=== PATIENT | female | born 1950 | race Caucasian/White ===

== ENCOUNTER → 2016-10-15 | Outpatient (REF) | payer MEDICARE ==
[2016-10-15 11:29] LABS: BASO # 0.1 K/mm3 (0.0-0.2); BASO % 0.8 % (0.0-1.0); EOS # 0.1 K/mm3 (0.0-0.50); EOS % 0.8 % (0.0-3.0); LARGE UNSTAINED CELL # 0.2 K/mm3 (0.0-0.4); LARGE UNSTAINED CELL % 1.9 % (0.0-4.0); LYMPH # 2.7 K/mm3 (1.5-4.5); LYMPH % 21.4 % (24.0-44.0); MEAN CORPUSCULAR HEMOGLOBIN 31.3 pg (27.0-33.0); MEAN CORPUSCULAR HGB CONC 33.4 g/dl (32.0-36.5); MEAN CORPUSCULAR VOLUME 93.7 fl (80.0-96.0); MONO # 0.6 K/mm3 (0.0-0.8); MONO % 5.5 % (0.0-5.0); NEUTROPHILS # 8.1 K/mm3 (1.8-7.7); NEUTROPHILS % 69.6 % (36.0-66.0); PLATELET COUNT, AUTOMATED 224 k/mm3 (150-450); RED CELL DISTRIBUTION WIDTH 12.1 % (11.5-14.5); WHITE BLOOD COUNT 11.6 K/mm3 (4.0-10.0)
[2016-10-15 12:04] LABS: ALBUMIN 3.5 GM/DL (3.2-5.2); ALBUMIN/GLOBULIN RATIO 0.97 (1.00-1.93); BILIRUBIN,TOTAL 0.4 MG/DL (0.2-1.0); CALCIUM LEVEL 8.4 MG/DL (8.8-10.2); GLOMERULAR FILTRATION RATE 59.1 (>45); MAGNESIUM LEVEL 1.3 MG/DL (1.8-2.4); PERCENT SATURATION 32.1 % (13.2-37.4); TOTAL PROTEIN 7.1 GM/DL (6.4-8.2)
== END ==
LOC: M SFHCPLAZ 09:51
PROVIDERS: ATTEND Family Medicine
DX: N18.2 Chronic kidney disease, stage 2 (mild) (principal); I12.9 Hypertensive chronic kidney disease with stage 1 through stage 4 chronic kidney disease, or unspecified chronic kidney disease; E11.8 Type 2 diabetes mellitus with unspecified complications; E78.2 Mixed hyperlipidemia

== ENCOUNTER → 2017-03-13 | Outpatient (REF) | payer MEDICARE ==
[2017-03-13 14:12] LABS: YEAST LIKE CELL URINE AUTO SMALL
[2017-03-13 14:17] LABS: BASO # 0.1 K/mm3 (0.0-0.2); BASO % 0.7 % (0.0-1.0); EOS # 0.2 K/mm3 (0.0-0.50); EOS % 1.5 % (0.0-3.0); LARGE UNSTAINED CELL # 0.2 K/mm3 (0.0-0.4); LARGE UNSTAINED CELL % 1.4 % (0.0-4.0); LYMPH # 3.1 K/mm3 (1.5-4.5); LYMPH % 25.8 % (24.0-44.0); MEAN CORPUSCULAR HEMOGLOBIN 32.7 pg (27.0-33.0); MEAN CORPUSCULAR HGB CONC 34.5 g/dl (32.0-36.5); MEAN CORPUSCULAR VOLUME 94.9 fl (80.0-96.0); MONO # 0.8 K/mm3 (0.0-0.8); MONO % 6.8 % (0.0-5.0); NEUTROPHILS # 7.2 K/mm3 (1.8-7.7); NEUTROPHILS % 63.8 % (36.0-66.0); PLATELET COUNT, AUTOMATED 239 k/mm3 (150-450); RED CELL DISTRIBUTION WIDTH 12.5 % (11.5-14.5); WHITE BLOOD COUNT 11.3 K/mm3 (4.0-10.0)
[2017-03-13 14:31] LABS: ALBUMIN 3.4 GM/DL (3.2-5.2); ALBUMIN/GLOBULIN RATIO 0.89 (1.00-1.93); ALKALINE PHOSPHATASE 89 U/L (45-117); ALT/SGPT 27 U/L (12-78); ANION GAP 12 MEQ/L (8-16); AST/SGOT 18 U/L (15-37); BILIRUBIN,TOTAL 0.3 MG/DL (0.2-1.0); BLOOD UREA NITROGEN 20 MG/DL (7-18); CALCIUM LEVEL 9.2 MG/DL (8.8-10.2); CARBON DIOXIDE LEVEL 28 MEQ/L (21-32); CHLORIDE LEVEL 106 MEQ/L (98-107); CREATININE FOR GFR 0.85 MG/DL (0.55-1.02); FREE T4 1.06 NG/DL (0.76-1.46); GLOMERULAR FILTRATION RATE > 60.0 (>45); GLUCOSE, FASTING 174 MG/DL (80-110); POTASSIUM SERUM 4.2 MEQ/L (3.5-5.1); SODIUM LEVEL 146 MEQ/L (136-145); TOTAL PROTEIN 7.2 GM/DL (6.4-8.2)
== END ==
LOC: M SFHCPLAZ 09:04
PROVIDERS: ATTEND Family Medicine
DX: N18.2 Chronic kidney disease, stage 2 (mild) (principal); Z79.899 Other long term (current) drug therapy

== ENCOUNTER → 2017-08-28 | Outpatient (REF) | payer MEDICARE ==
[2017-08-28 12:37] LABS: ALBUMIN 3.5 GM/DL (3.2-5.2); ALBUMIN/GLOBULIN RATIO 0.92 (1.00-1.93); ALKALINE PHOSPHATASE 96 U/L (45-117); ALT/SGPT 78 U/L (12-78); ANION GAP 7 MEQ/L (8-16); AST/SGOT 74 U/L (7-37); BILIRUBIN,TOTAL 0.6 MG/DL (0.2-1.0); BLOOD UREA NITROGEN 13 MG/DL (7-18); C REACTIVE PROTEIN QUANTITATIV 0.92 MG/DL (0.00-0.30); CALCIUM LEVEL 9.1 MG/DL (8.8-10.2); CARBON DIOXIDE LEVEL 32 MEQ/L (21-32); CHLORIDE LEVEL 104 MEQ/L (98-107); CHOLESTEROL LEVEL 130 MG/DL (<200); CHOLESTEROL RISK RATIO 3.023 (<5); CPK CREATINE PHOSPHOKINASE 27 U/L (26-192); CREATININE FOR GFR 1.03 MG/DL (0.55-1.30); GLOMERULAR FILTRATION RATE 57.1 (>45); GLUCOSE, FASTING 149 MG/DL (70-100); HDL CHOLESTEROL 43 MG/DL (>40); LDL CHOLESTEROL 40.6 MG/DL (<100); NON-HDL-C 87 MG/DL; POTASSIUM SERUM 4.1 MEQ/L (3.5-5.1); SODIUM LEVEL 143 MEQ/L (136-145); TOTAL PROTEIN 7.3 GM/DL (6.4-8.2); TRIGLYCERIDES LEVEL 232 MG/DL (<150)
[2017-08-28 13:15] LABS: ESTIMATED AVERAGE GLUCOSE 154 MG/DL (60-110)
[2017-08-28 15:13] LABS: TOTAL 25(OH) VITAMIN D 72.1 NG/ML (30.0-100.0)
[2017-08-28 15:38] LABS: PTH INTACT 59.7 PG/ML (18.5-88.0)
== END ==
LOC: M SFHCPLAZ 08:44
DX: E78.2 Mixed hyperlipidemia (principal); I10 Essential (primary) hypertension; E11.8 Type 2 diabetes mellitus with unspecified complications; E55.9 Vitamin D deficiency, unspecified
CPT/HCPCS: 82550

== ENCOUNTER → 2017-09-23 | Outpatient (REF) | payer MEDICARE | LOC: M SFHCPLAZ 14:37 | DX: C44.619 Basal cell carcinoma of skin of left upper limb, including shoulder (principal) | CPT/HCPCS: 88305 ==

== ENCOUNTER → 2017-12-24 | Outpatient (REF) | payer MEDICARE ==
[2017-12-24 11:57] LABS: BASO # 0.1 10^3/uL (0.0-0.2); BASO % 0.7 % (0.0-1.0); EOS # 0.1 10^3/uL (0.0-0.50); EOS % 1.3 % (0.0-3.0); HEMATOCRIT 44.6 % (36.0-47.0); IMMATURE GRANULOCYTE % 0.5 % (0-3.0); LYMPH % 29.1 % (24.0-44.0); MEAN CORPUSCULAR HEMOGLOBIN 31.6 pg (27.0-33.0); MEAN CORPUSCULAR HGB CONC 33.6 g/dl (32.0-36.5); MEAN CORPUSCULAR VOLUME 94.1 fl (80.0-96.0); MONO # 0.8 10^3/uL (0.0-0.8); MONO % 7.9 % (0.0-5.0); NEUTROPHILS # 6.2 10^3/uL (1.8-7.7); NEUTROPHILS % 60.5 % (36.0-66.0); PLATELET COUNT, AUTOMATED 242 10^3/uL (150-450); RED BLOOD COUNT 4.74 10^6/uL (4.00-5.40); RED CELL DISTRIBUTION WIDTH 11.9 % (11.5-14.5); RETIC HEMOGLOBIN EQUIVALENT 36.1 pg (24-36); RETICULOCYTE # 68.3 10^9/L (17-77); RETICULOCYTE % 1.4 % (0.5-1.5); WHITE BLOOD COUNT 10.2 10^3/uL (4.0-10.0)
[2017-12-24 12:17] LABS: VITAMIN B12 LEVEL 829 PG/ML (247-911)
[2017-12-24 12:25] LABS: ALBUMIN 3.4 GM/DL (3.2-5.2); ALBUMIN/GLOBULIN RATIO 0.94 (1.00-1.93); ALKALINE PHOSPHATASE 82 U/L (45-117); ALT/SGPT 30 U/L (12-78); ANION GAP 9 MEQ/L (8-16); AST/SGOT 24 U/L (7-37); BILIRUBIN,TOTAL 0.2 MG/DL (0.2-1.0); BLOOD UREA NITROGEN 18 MG/DL (7-18); CALCIUM LEVEL 8.8 MG/DL (8.8-10.2); CARBON DIOXIDE LEVEL 30 MEQ/L (21-32); CHLORIDE LEVEL 105 MEQ/L (98-107); CREATININE FOR GFR 0.95 MG/DL (0.55-1.30); FREE T4 1.09 NG/DL (0.76-1.46); GLOMERULAR FILTRATION RATE > 60.0 (>45); GLUCOSE, FASTING 103 MG/DL (70-100); POTASSIUM SERUM 4.3 MEQ/L (3.5-5.1); SODIUM LEVEL 144 MEQ/L (136-145)
[2017-12-24 13:36] LABS: ESTIMATED AVERAGE GLUCOSE 169 MG/DL (60-110); HEMOGLOBIN A1c 7.5 %
== END ==
LOC: M SFHCPLAZ 07:37
DX: N18.2 Chronic kidney disease, stage 2 (mild) (principal); E11.8 Type 2 diabetes mellitus with unspecified complications
CPT/HCPCS: 83735

== ENCOUNTER → 2018-03-19 | Outpatient (REF) | payer MEDICARE | LOC: M SFHCPLAZ 12:39 | DX: C44.629 Squamous cell carcinoma of skin of left upper limb, including shoulder (principal) | CPT/HCPCS: 88305 ==

== ENCOUNTER → 2018-04-13 | Outpatient (CLI) | payer MEDICARE | LOC: M ADAMS 12:09 | DX: R19.7 Diarrhea, unspecified (principal) | CPT/HCPCS: 74021 ==

== ENCOUNTER → 2018-04-22 | Outpatient (REF) | payer MEDICARE ==
[2018-04-22 11:39] LABS: BASO # 0.1 10^3/uL (0.0-0.2); BASO % 0.6 % (0.0-1.0); EOS # 0.2 10^3/uL (0.0-0.50); EOS % 1.4 % (0.0-3.0); HEMATOCRIT 45.5 % (36.0-47.0); HEMOGLOBIN 15.1 g/dl (12.0-15.5); IMMATURE GRANULOCYTE % 0.7 % (0-3.0); LYMPH # 2.8 10^3/uL (1.5-4.5); LYMPH % 25.8 % (24.0-44.0); MEAN CORPUSCULAR HEMOGLOBIN 31.4 pg (27.0-33.0); MEAN CORPUSCULAR HGB CONC 33.2 g/dl (32.0-36.5); MEAN CORPUSCULAR VOLUME 94.6 fl (80.0-96.0); MONO # 0.9 10^3/uL (0.0-0.8); MONO % 7.9 % (0.0-5.0); NEUTROPHILS # 6.8 10^3/uL (1.8-7.7); NEUTROPHILS % 63.6 % (36.0-66.0); PLATELET COUNT, AUTOMATED 239 10^3/uL (150-450); RED BLOOD COUNT 4.81 10^6/uL (4.00-5.40); RED CELL DISTRIBUTION WIDTH 11.9 % (11.5-14.5); WHITE BLOOD COUNT 10.7 10^3/uL (4.0-10.0)
[2018-04-22 12:03] LABS: ALBUMIN 3.4 GM/DL (3.2-5.2); ALBUMIN/GLOBULIN RATIO 0.92 (1.00-1.93); ALKALINE PHOSPHATASE 77 U/L (45-117); ALT/SGPT 26 U/L (12-78); ANION GAP 8 MEQ/L (8-16); AST/SGOT 21 U/L (7-37); BILIRUBIN,TOTAL 0.5 MG/DL (0.2-1.0); BLOOD UREA NITROGEN 19 MG/DL (7-18); CALCIUM LEVEL 8.8 MG/DL (8.8-10.2); CARBON DIOXIDE LEVEL 29 MEQ/L (21-32); CHLORIDE LEVEL 107 MEQ/L (98-107); CREATININE FOR GFR 1.13 MG/DL (0.55-1.30); GLOMERULAR FILTRATION RATE 51.1 (>45); GLUCOSE, FASTING 124 MG/DL (70-100); POTASSIUM SERUM 3.8 MEQ/L (3.5-5.1); PTH INTACT 60.1 PG/ML (18.5-88.0); SODIUM LEVEL 144 MEQ/L (136-145); TOTAL PROTEIN 7.1 GM/DL (6.4-8.2)
[2018-04-22 12:04] LABS: ESTIMATED AVERAGE GLUCOSE 131 MG/DL (60-110); HEMOGLOBIN A1c 6.2 %
[2018-04-23 11:18] LABS: GAMMA GLOBULINS 1.12 GM/DL (0.65-1.58)
[2018-04-23 11:33] LABS: ALBUMIN % 54.4 % (55.8-66.1); ALPHA-1-GLOBULIN % 4.3 % (2.9-4.9); ALPHA-2-GLOBULINS % 13.9 % (7.1-11.8); BETA-1-GLOBULINS % 6.1 % (4.7-7.2); BETA-2-GLOBULINS % 5.5 % (3.2-6.5)
[2018-04-23 11:34] LABS: ALBUMIN 3.86 GM/DL (3.29-5.55); ALPHA-1-GLOBULINS 0.31 GM/DL (0.17-0.41); ALPHA-2-GLOBULINS 0.99 GM/DL (0.42-0.99); BETA-1-GLOBULINS 0.43 GM/DL (0.28-0.60); BETA-2-GLOBULINS 0.39 GM/DL (0.19-0.55); GAMMA GLOBULIN % 15.8 % (11.1-18.8)
== END ==
LOC: M SFHCPLAZ 08:34
DX: N18.2 Chronic kidney disease, stage 2 (mild) (principal); E11.8 Type 2 diabetes mellitus with unspecified complications; E55.9 Vitamin D deficiency, unspecified; Z79.899 Other long term (current) drug therapy
CPT/HCPCS: 84165

== ENCOUNTER → 2018-04-24 | Outpatient (CLI) | payer MEDICARE ==
[~2018-04-24] MED LIST: ISOVUE-370 76% 100ML VIAL (Q9967) As Ordered
== END ==
LOC: M RAD 12:31
DX: R91.8 Other nonspecific abnormal finding of lung field (principal); E04.1 Nontoxic single thyroid nodule
CPT/HCPCS: Q9967

== ENCOUNTER → 2018-05-06 | Outpatient (CLI) | payer MEDICARE ==
[~2018-05-06] MED LIST changes: -ISOVUE-370 76% 100ML VIAL (Q9967) As Ordered; +LIDOCAINE 1% MDV 20ML VIAL As Ordered; +amLODIPine 5 MG TAB PO
== END ==
LOC: M RADPRO 08:03
DX: R91.8 Other nonspecific abnormal finding of lung field (principal); Z53.8 Procedure and treatment not carried out for other reasons

== ENCOUNTER → 2018-05-08 | Outpatient (CLI) | payer MEDICARE ==
[~2018-05-08] MED LIST changes: +ALPRAZolam 0.5 MG TAB PO
== END ==
LOC: M RADPRO 09:10
DX: C34.92 Malignant neoplasm of unspecified part of left bronchus or lung (principal); Z88.2 Allergy status to sulfonamides
CPT/HCPCS: 32405

== ENCOUNTER → 2018-05-14 | Outpatient (CLI) | payer MEDICARE | LOC: M RADPRO 12:07 | DX: E04.1 Nontoxic single thyroid nodule (principal) | CPT/HCPCS: 76536 ==

== ENCOUNTER → 2018-05-26 | Outpatient (CLI) | payer MEDICARE | LOC: M PLARAD 13:25 | DX: R91.1 Solitary pulmonary nodule (principal) | CPT/HCPCS: 78815 ==

== ENCOUNTER → 2018-05-28 | Outpatient (CLI) | payer MEDICARE ==
[~2018-05-28] MED LIST changes: -ALPRAZolam 0.5 MG TAB PO; -amLODIPine 5 MG TAB PO
== END ==
LOC: M RADPRO 11:55
DX: E04.1 Nontoxic single thyroid nodule (principal); Z79.82 Long term (current) use of aspirin; Z79.899 Other long term (current) drug therapy; Z88.2 Allergy status to sulfonamides
CPT/HCPCS: 10022

== ENCOUNTER → 2018-06-17 | Outpatient (CLI) | payer MEDICARE ==
[~2018-06-17] MED LIST changes: +AMMO12LO TOP; +ASPI1TAB20 PO; +ATOR1TAB21 PO; +BISO5TAB5 PO; +BUPR150T5 PO; +COMBAER6 INH; +DRIS50003 PO; +ENAL20TA PO; +INVO300T PO; +JANU100T PO; -LIDOCAINE 1% MDV 20ML VIAL As Ordered; +MAGN400T2 PO; +METF500T13 PO; +OMEP40CA2 PO
== END ==
LOC: M CARPUL 09:36
PROVIDERS: ATTEND Family Medicine
DX: C34.92 Malignant neoplasm of unspecified part of left bronchus or lung (principal)

== ENCOUNTER → 2018-08-03 | Outpatient (REF) | payer MEDICARE ==
[2018-08-03 13:44] LABS: BASO # 0.1 10^3/uL (0.0-0.2); BASO % 0.8 % (0.0-1.0); EOS # 0.2 10^3/uL (0.0-0.50); HEMATOCRIT 45.5 % (36.0-47.0); HEMOGLOBIN 15.3 g/dl (12.0-15.5); LYMPH # 3.1 10^3/uL (1.5-4.5); LYMPH % 29.1 % (24.0-44.0); MEAN CORPUSCULAR HEMOGLOBIN 31.2 pg (27.0-33.0); MEAN CORPUSCULAR HGB CONC 33.6 g/dl (32.0-36.5); MEAN CORPUSCULAR VOLUME 92.7 fl (80.0-96.0); MONO # 0.9 10^3/uL (0.0-0.8); MONO % 8.8 % (0.0-5.0); NEUTROPHILS # 6.2 10^3/uL (1.8-7.7); NEUTROPHILS % 58.4 % (36.0-66.0); PLATELET COUNT, AUTOMATED 266 10^3/uL (150-450); RED BLOOD COUNT 4.91 10^6/uL (4.00-5.40); WHITE BLOOD COUNT 10.6 10^3/uL (4.0-10.0)
[2018-08-03 13:55] LABS: HEMOGLOBIN A1c 7.5 %; INR 0.95; PROTHROMBIN TIME 12.8 SECONDS (12.1-14.4)
[2018-08-03 13:56] LABS: PARTIAL THROMBOPLASTIN TIME 28.7 SECONDS (25.4-37.6)
[2018-08-03 14:14] LABS: ALBUMIN 3.5 GM/DL (3.2-5.2); BILIRUBIN,TOTAL 0.2 MG/DL (0.2-1.0); CALCIUM LEVEL 9.2 MG/DL (8.8-10.2); CHOLESTEROL RISK RATIO 3.717 (<5); CREATININE FOR GFR 0.99 MG/DL (0.55-1.30); FREE T4 0.92 NG/DL (0.76-1.46); GLOMERULAR FILTRATION RATE 59.6 (>45); POTASSIUM SERUM 3.9 MEQ/L (3.5-5.1); PTH INTACT 48.3 PG/ML (18.5-88.0); THYROID STIMULATING HORMONE 1.09 uIU/ML (0.358-3.740); TOTAL 25(OH) VITAMIN D 60.6 NG/ML (30.0-100.0); TOTAL PROTEIN 7.1 GM/DL (6.4-8.2)
== END ==
LOC: M SFHCPLAZ 11:53
PROVIDERS: ATTEND Family Medicine
DX: I11.0 Hypertensive heart disease with heart failure (principal); E55.9 Vitamin D deficiency, unspecified; E11.8 Type 2 diabetes mellitus with unspecified complications; I50.30 Unspecified diastolic (congestive) heart failure
CPT/HCPCS: 36415; 80053; 80061; 82306; 83036; 83970; 84439; 84443; 85025; 85610; 85730; G0463

== ENCOUNTER → 2018-09-22 | Outpatient (CLI) | payer MEDICARE ==
[~2018-09-22] MED LIST changes: +ISOVUE-370 76% 125ML VIAL (Q9967 PER ML) As Ordered ONE
--- NOTE | 2018-09-22 11:28 | REP ---
CT CHEST WITH IV CONTRAST: HISTORY: Lung carcinoma. Comparison chest CT study April 24, 2018. CT CONTRAST DOSE: 75 mL of intravenous Isovue [address] FINDINGS: The previously noted spiculated nodule in the left upper lobe has enlarged. Currently measures 2.4 x 2.0 x 2.3 cm. Previously its greatest dimension was 2.2 cm. It demonstrates heterogeneous predominately peripheral enhancement suggesting some central necrosis. There are three normal-sized precarinal lymph nodes noted the mediastinum. The largest of these measures 9 mm in short axis dimension. There are normal sized pretracheal and subcarinal lymph nodes noted as well. No definite adenopathy is seen. A right thyroid nodule is again noted unchanged. No axillary or supraclavicular adenopathy is seen. There is a granuloma in the left upper lobe more posteriorly and inferiorly. No other significant pulmonary nodule is appreciated. There is a zone of linear discoid atelectasis in the left upper lobe. No adrenal lesion is seen. There are cysts in the left kidney as before. IMPRESSION: Interval enlargement of the malignant left upper lobe nodule. Scattered normal-sized mediastinal lymph nodes. Electronically Signed by Jacob Luna MD 09/22/2018 11:33 A
[2018-09-22 13:40] LABS: BASO # 0.1 10^3/uL (0.0-0.2); EOS # 0.8 10^3/uL (0.0-0.50); EOS % 7.2 % (0.0-3.0); HEMATOCRIT 47.4 % (36.0-47.0); HEMOGLOBIN 16.3 g/dl (12.0-15.5); LYMPH # 2.8 10^3/uL (1.5-4.5); LYMPH % 26.2 % (24.0-44.0); MEAN CORPUSCULAR HEMOGLOBIN 31.2 pg (27.0-33.0); MEAN CORPUSCULAR HGB CONC 34.4 g/dl (32.0-36.5); MEAN CORPUSCULAR VOLUME 90.6 fl (80.0-96.0); MONO # 0.9 10^3/uL (0.0-0.8); MONO % 8.4 % (0.0-5.0); NEUTROPHILS # 6.1 10^3/uL (1.8-7.7); NEUTROPHILS % 56.7 % (36.0-66.0); PLATELET COUNT, AUTOMATED 274 10^3/uL (150-450); RED BLOOD COUNT 5.23 10^6/uL (4.00-5.40); WHITE BLOOD COUNT 10.7 10^3/uL (4.0-10.0)
[2018-09-22 13:48] LABS: APPEARANCE, URINE CLEAR (CLEAR); BACTERIA, URINE AUTO 1+ (NEGATIVE); BILIRUBIN, URINE AUTO NEGATIVE (NEGATIVE); BLOOD, URINE BLOOD NEGATIVE (NEGATIVE); COLOR, URINE YELLOW (YELLOW); GLUCOSE, URINE (UA) AUTO 1+ mg/dL (NEGATIVE); KETONE, URINE AUTO NEGATIVE (NEGATIVE); LEUKOCYTE ESTERASE, URINE AUTO TRACE (NEGATIVE); NITRITE, URINE AUTO NEGATIVE (NEGATIVE); PROTEIN, URINE AUTO 1+ mg/dL (NEGATIVE); RBC, URINE AUTO 3 /HPF (0-3); SPECIFIC GRAVITY URINE AUTO 1.054 (1.002-1.035); SQUAMOUS EPITHELIAL CELL UR AU 3 /HPF (0-6); UROBILINOGEN, URINE AUTO 0.2 mg/dL (0.0-2.0); WBC, URINE AUTO 9 /HPF (0-3)
[2018-09-22 13:50] LABS: PARTIAL THROMBOPLASTIN TIME 28.9 SECONDS (25.4-37.6); PROTHROMBIN TIME 13.3 SECONDS (12.1-14.4)
[2018-09-22 13:51] LABS: ABG BASE EXCESS 0.5 (-2.0-2.0); ABG HCO3 25.3 MEQ/L (22.0-26.0); ABG O2 SATURATION 95.4 % (95.0-99.0); ABG PARTIAL PRESSURE CO2 41.1 mmHg (35.0-45.0); ABG PARTIAL PRESSURE O2 78.3 mmHg (75.0-100.0); ABG STANDARD HCO3 24.9 MEQ/L (22.0-26.0); ABG TOTAL CO2 26.6 MEQ/L (23.0-31.0); ABG pH (ARTERIAL) 7.407 UNITS (7.350-7.450)
[2018-09-22 14:10] LABS: CALCIUM LEVEL 9.7 MG/DL (8.8-10.2); CREATININE FOR GFR 1.04 MG/DL (0.55-1.30); GLOMERULAR FILTRATION RATE 56.1 (>45); POTASSIUM SERUM 4.1 MEQ/L (3.5-5.1)
--- NOTE | 2018-09-22 14:23 | REP ---
Clinical: Lung cancer. Technique: PA and lateral. Comparison: 05/08/2018. Findings: Left upper lobe mass measures approximately 2.3 cm. The bilateral lung perkins are otherwise clear. No consolidation. No effusion. No pneumothorax. Mediastinum and cardiac silhouette normal. Skeletal structures intact. Impression: 2.3 cm left upper lobe mass similar to 05/17 Electronically Signed by Bubba Taylor MD 09/22/2018 02:15 P
--- NOTE | 2018-09-23 09:07 | ECGEPIP ---
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
== END ==
LOC: M RAD 07:46 → M PAT 12:38
PROVIDERS: ATTEND Thoracic Surgery (Cardiothoracic Vascular Surgery)
DX: Z01.818 Encounter for other preprocedural examination (principal); C34.12 Malignant neoplasm of upper lobe, left bronchus or lung
CPT/HCPCS: 71046; 71260; 80048; 81001; 82375; 82803; 85025; 85610; 85730; 93005; Q9967

== ENCOUNTER 2018-09-23 07:30 | Inpatient (IN) | payer MEDICARE ==
[2018-09-22 14:06] VITALS: BP 200/88
[~2018-09-23] VITALS: Ht 160 cm; Wt 87.2 kg
[~2018-09-23 07:30] MED LIST changes: -ISOVUE-370 76% 125ML VIAL (Q9967 PER ML) As Ordered ONE
[2018-09-29] MEDS ORDERED: LR 1,000 ML IV ONE (06:00)
[2018-09-29] MEDS ORDERED: MUPIROCIN 2% OINT 22 GM TUBE TOP ONE (06:00)
[2018-10-05] MEDS ORDERED: LR 1,000 ML IV ONE (06:00)
[2018-10-05] MEDS ORDERED: MUPIROCIN 2% OINT 22 GM TUBE TOP ONE (06:00)
[2018-10-05] MEDS ORDERED: BISO10TA13 PO (06:17)
[2018-10-05] MEDS ORDERED: fentaNYL 100 MCG/2 ML INJECTION (J3010) As Ordered ONE (06:46)
[2018-10-05] MEDS ORDERED: MIDAZOLAM INJ 2 MG/2 ML VIAL (J2250) As Ordered ONE ×2 (06:46→07:13)
[2018-10-05] MEDS ORDERED: LIDOCAINE 2% INJ 100 MG/5 ML SDV (FOR ANES.) As Ordered ONE (07:09)
[2018-10-05] MEDS ORDERED: ROCURONIUM BROMIDE 50 MG/5 ML VIAL As Ordered ONE ×2 (07:09→10:04)
[2018-10-05] MEDS ORDERED: PROPOFOL 200 MG/20 ML VIAL As Ordered ONE (07:09)
[2018-10-05] MEDS ORDERED: BUPIVACAINE HCL 0.5% 10 ML VIAL As Ordered ONE (07:11)
[2018-10-05] MEDS ORDERED: BUPIVACAINE LIPOSOME/PF 1.3% 20ML VIAL (13.3MG/ML)(EXPAREL)(C9290 PER1MG) As Ordered ONE (07:11)
[2018-10-05] MEDS ORDERED: STERILE TALC POWDER 3GM VIAL As Ordered ONE (07:11)
[2018-10-05] MEDS ORDERED: ceFAZolin 1GM INJ (J0690 PER 500MG) As Ordered ONE (07:11)
[2018-10-05] MEDS ORDERED: fentaNYL 250 MCG/5 ML INJECTION (J3010) As Ordered ONE ×2 (07:12→10:12)
[2018-10-05] MEDS ORDERED: CETACAINE SPRAY 5GM As Ordered ONE (07:36)
[2018-10-05] MEDS ORDERED: PHENYLephrine HCL 500 MCG/5 ML (100MCG/ML) SYRINGE (J2370) As Ordered ONE ×2 (08:13→11:43)
[2018-10-05] MEDS ORDERED: TALCAIR POWDER BLOWER (CAN ONLY BE USED WITH 3GM TALC VIAL) XX ONE (08:13)
[2018-10-05] MEDS ORDERED: fentaNYL 100 MCG/2 ML INJECTION (J3010) IV ONE (08:45)
[2018-10-05] MEDS ORDERED: MIDAZOLAM INJ 2 MG/2 ML VIAL (J2250) IV PRN (08:45)
[2018-10-05] MEDS ORDERED: MIDAZOLAM INJ 2 MG/2 ML VIAL (J2250) IV ONE (08:45)
[2018-10-05] MEDS: ENALAPRIL MALEATE 10 MG TAB PO SCH ×3 (09:00→20:30)
[2018-10-05] MEDS ORDERED: KETOROLAC 60 MG/2 ML VIAL (J1885) As Ordered ONE (10:05)
[2018-10-05] MEDS ORDERED: METOCLOPRAMIDE INJ 10MG/2ML VIAL (J2765) As Ordered ONE (10:05)
[2018-10-05] MEDS ORDERED: ONDANSETRON 4MG/2ML VIAL (J2405) As Ordered ONE (10:05)
[2018-10-05] MEDS ORDERED: SUGAMMADEX SODIUM 500 MG/5 ML VIAL (BRIDION) As Ordered ONE (11:43)
[2018-10-05] MEDS ORDERED: BUPIVACAINE HCL 0.5% 30 ML VIAL As Ordered ONE (11:48)
[2018-10-05] MEDS ORDERED: ONDANSETRON 4MG/2ML VIAL (J2405) IV PRN ×3 (12:15→13:30)
[2018-10-05] MEDS ORDERED: ACETAMINOPHEN TAB 650MG DOSE (2X325MG) PO PRN (12:15)
[2018-10-05] MEDS ORDERED: NORCO, ANEXSIA 5/325MG TABLET (HYDROcodone/ACETAMINOPHEN) PO PRN (12:15)
[2018-10-05] MEDS ORDERED: BISACODYL 10 MG SUPP PR PRN (12:15)
[2018-10-05] MEDS ORDERED: PERCOCET 5MG/325MG TAB PO PRN ×2 (12:15)
[2018-10-05] MEDS ORDERED: NALOXONE INJ 0.4 MG/1 ML VIAL (J2310) IV PRN (12:30)
[2018-10-05] MEDS ORDERED: diphenhydrAMINE INJ 50MG/ML VIAL (J1200) IV PRN (12:30)
[2018-10-05] MEDS ORDERED: EPIDURAL/PCA KEYS XX PRN (12:30)
[2018-10-05] MEDS ORDERED: WALLBOXKEY XX PRN (12:30)
[2018-10-05] MEDS ORDERED: METOCLOPRAMIDE INJ 10MG/2ML VIAL (J2765) IV PRN (12:30)
[2018-10-05] MEDS ORDERED: FENTANYL 2MCG/ML BUPIVACAINE 0.0625% NACL 250ML IV BAG As Ordered ONE (12:32)
[2018-10-05] MEDS: KCL 20MEQ IN D5/NS 1000ML 1,000 ML IV SCH (13:00)
[2018-10-05] MEDS: FENTANYL/BUPIVACAINE/NACL BAG 250 ML EPIDURAL SCH (13:05)
[2018-10-05 13:06] LABS: ABG BASE EXCESS -4.2 (-2.0-2.0); ABG HCO3 24.3 MEQ/L (22.0-26.0); ABG O2 SATURATION 97.2 % (95.0-99.0); ABG PARTIAL PRESSURE CO2 58.6 mmHg (35.0-45.0); ABG PARTIAL PRESSURE O2 107.5 mmHg (75.0-100.0); ABG TOTAL CO2 26.1 MEQ/L (23.0-31.0)
[2018-10-05 13:16] LABS: BASO # 0.1 10^3/uL (0.0-0.2); BASO % 0.4 % (0.0-1.0); EOS # 0.1 10^3/uL (0.0-0.50); EOS % 0.6 % (0.0-3.0); HEMATOCRIT 42.1 % (36.0-47.0); HEMOGLOBIN 14.1 g/dl (12.0-15.5); LYMPH # 1.2 10^3/uL (1.5-4.5); LYMPH % 7.9 % (24.0-44.0); MEAN CORPUSCULAR HEMOGLOBIN 31.1 pg (27.0-33.0); MEAN CORPUSCULAR HGB CONC 33.5 g/dl (32.0-36.5); MEAN CORPUSCULAR VOLUME 92.7 fl (80.0-96.0); MONO # 1.1 10^3/uL (0.0-0.8); MONO % 7.1 % (0.0-5.0); NEUTROPHILS # 12.4 10^3/uL (1.8-7.7); NEUTROPHILS % 83.3 % (36.0-66.0); PLATELET COUNT, AUTOMATED 256 10^3/uL (150-450); RED BLOOD COUNT 4.54 10^6/uL (4.00-5.40); WHITE BLOOD COUNT 14.9 10^3/uL (4.0-10.0)
[2018-10-05 13:18] LABS: ABG pH (ARTERIAL) 7.235 UNITS (7.350-7.450)
[2018-10-05] MEDS ORDERED: MORPHINE 10 MG/ML 1ML VIAL (J2270) IV PRN (13:30)
[2018-10-05] MEDS ORDERED: fentaNYL 100 MCG/2 ML INJECTION (J3010) IV PRN (13:30)
[2018-10-05 13:42] LABS: CALCIUM LEVEL 8.8 MG/DL (8.8-10.2); CREATININE FOR GFR 1.71 MG/DL (0.55-1.30); GLOMERULAR FILTRATION RATE 31.6 (>45); POTASSIUM SERUM 4.1 MEQ/L (3.5-5.1)
--- NOTE | 2018-10-05 14:07 | RO ---
DATE OF PROCEDURE: 10/05/2018 PREPROCEDURE DIAGNOSIS: Squamous cell carcinoma of the left upper lobe. POSTPROCEDURE DIAGNOSIS: Squamous cell carcinoma of the left upper lobe. SURGEON: Dr. 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 ANESTHESIA: FINDINGS: 1. Tracheobronchial tree showed normal branching. There were copious amounts of thick secretions. There were no endobronchial lesions. 2. Lobectomy showed an almost complete fissure. She is morbidly obese and very small and all the tissues were compacted such that dissection was rather difficult but doable. 3. Mediastinal nodes looked anthracotic, as did the hilar nodes. DESCRIPTION OF PROCEDURE: Under satisfactory general anesthesia and single lumen tube endotracheal intubation, the bronchoscope was passed through the tracheobronchial tree. There was normal branching pattern in each segment and subsegment, which were thoroughly inspected. There were copious amounts of secretions and these were suction aspirated. The patient then underwent double lumen tube intubation and turned in the right lateral decubitus position with the left side up. Because of her morbid obesity, a rather generous incision was made posterolaterally. Ribs were counted and the chest was entered through the fifth intercostal space just above the sixth rib. The above findings were noted. Dissection was first started in the fissure where the pulmonary artery could be seen. It was dissected free. As I dissected both proximally and distally, there were increased amounts of adipose tissue over the vessel all the way up to the apex. This was carefully dissected. Eventually four branches were found and these were surrounded with Vesseloops and divided by use of a ski tip endothoracic stapler. There was one very small vessel, which I divided with the stapler, which bled through the staple line, into which pressure was applied for 4 minutes and stopped. The fissure was completed by use of an [place] stapler. The vein was then located and dissected. This was a rather difficult dissection as the vein was densely adherent to the underlying bronchus and the utmost care had to be taken in order to not enter the vein. Finally, it was dissected off the bronchus, surrounded with a Vesseloop and divided by use of a ski tip vascular stapler. This then left the bronchus. During the manipulation of the bronchus, the endotracheal tube became dislodged and it took approximately 20 to 25 minutes to reposition it by anesthesia. Finally after repositioning, the bronchus was divided by use of a TX 4.8 stapler. Bronchus was tested for leaks and was found to be intact up to 30 cm of water. During dissection of the vein, the inferior ligament had been taken down with use of electrocautery. The mediastinal nodes were then addressed by sizing the mediastinal pleura over the AP window. All the AP nodes were cleared out en bloc with a harmonic scalpel. The phrenic nerve was identified and preserved. After achieving adequate hemostasis, the bronchus was again tested to 30 cm of water. The chest was evacuated and two chest tubes were placed, #24 straight and #24 angled posteriorly. A five-level rib lock consisting of Marcaine and Exparel was then instilled. Tisseel was placed over all the staple lines and the bronchus. The lung was reinflated and the ribs were reapproximated with the use of #1 figure of eight pericostal sutures. The latissimus dorsi was reapproximated with use of a #0 Vicryl suture in a running fashion. The serratus anterior had been spared. The subcutaneous tissue, which was quite copious, was reapproximated by use of a running #3-0 Vicryl suture and the skin by use of #3-0 Monocryl subcuticular suture. Additional accessory incision in order to place the vascular stapler, was closed as above. The patient was then turned supine, reintubated with a single lumen tube, repeat bronchoscopy revealed intact anastomosis with some residual blood within the left mainstem bronchus. She had some secretions but not as many as I thought she was going to have. The patient tolerated the procedure well and left the operating room in satisfactory condition to the recovery room.
[2018-10-05 14:36] LABS: ABG BASE EXCESS -3.2 (-2.0-2.0); ABG HCO3 22.4 MEQ/L (22.0-26.0); ABG O2 SATURATION 95.2 % (95.0-99.0); ABG PARTIAL PRESSURE CO2 42.4 mmHg (35.0-45.0); ABG STANDARD HCO3 21.7 MEQ/L (22.0-26.0); ABG TOTAL CO2 23.7 MEQ/L (23.0-31.0); ABG pH (ARTERIAL) 7.341 UNITS (7.350-7.450)
--- NOTE | 2018-10-05 14:38 | REP ---
Portable chest, 12:47 p.m., single AP sitting view: Comparison is 09/22/2018. The patient is reportedly status post left upper lobectomy. There are two left thoracotomy tubes as an interval change. There is no pneumothorax or pleural fluid collection. The left lung is otherwise clear. The right lung is clear. Cardiac size is normal. There is subcutaneous emphysema along the right lateral chest wall. Epidural catheter is incidentally identified. Electronically Signed by Rafal Bentley MD 10/05/2018 02:28 P
[2018-10-05 15:10] VITALS: BP_SYST 120; BP_SYST 124; BP_SYST 133; BP_DIAS 117; BP_DIAS 53; BP_DIAS 78
[2018-10-05 16:00] VITALS: BP_SYST 132; BP_SYST 133; BP_DIAS 60
[2018-10-05] MEDS ORDERED: KETOROLAC 30 MG/ML VIAL (J1885) IV SCH (16:00)
[2018-10-05 17:00] VITALS: BP_SYST 122; BP_SYST 139; BP_DIAS 49; BP_DIAS 58
[2018-10-05] MEDS: MOM 30ML SUSPENSION UDC PO SCH (17:13)
[2018-10-05] MEDS: PANTOPRAZOLE 40MG TAB (PROTONIX) PO SCH (17:13)
[2018-10-05] MEDS: ceFAZolin SOD 1 GM in D5W MINI-BAG PLUS 50 ML IV SCH ×2 (17:13→22:56)
[2018-10-05 17:14] LABS: MAGNESIUM LEVEL 1.4 MG/DL (1.8-2.4)
[2018-10-05] MEDS: SITagliptin 50 MG TAB (JANUVIA) PO SCH (17:14)
[2018-10-05] MEDS: LEVALBUTEROL 1.25 MG/0.5 ML CONCENTRATE NEB NEB SCH ×2 (17:20→19:44)
[2018-10-05] MEDS ORDERED: MAG SULF 1GM/100ML (MAG RUN) 1 GM in APPROPRIATE DILUENT 1 EA IV ONE ×2 (17:30→21:00)
[2018-10-05 18:00] VITALS: BP_SYST 134; BP_SYST 156; BP_DIAS 56; BP_DIAS 63
[2018-10-05 20:00] VITALS: BP_SYST 124; BP_SYST 126; BP_DIAS 54; BP_DIAS 78
[2018-10-05] MEDS: ATORVASTATIN 20 MG TAB PO SCH (20:30)
[2018-10-05] MEDS: DOCUSATE SODIUM 100 MG CAP PO SCH (20:30)
[2018-10-05] MEDS: LACTIC ACID 12% LOTION 225 GM BTL TOP SCH (20:31)
[2018-10-05] MEDS: HEPARIN SOD (PORCINE) 5000 UNITS/ML VIAL SC SCH (20:32)
[2018-10-06] VITALS (10 sets, daily range): BP systolic 111–163; BP diastolic 50–82
[2018-10-06] MEDS: LEVALBUTEROL 1.25 MG/0.5 ML CONCENTRATE NEB NEB SCH ×4 (01:20→19:52)
[2018-10-06] MEDS: KCL 20MEQ IN D5/NS 1000ML 1,000 ML IV SCH (02:20)
[2018-10-06 04:46] LABS: BASO % 0.3 % (0.0-1.0); EOS % 0.1 % (0.0-3.0); HEMATOCRIT 40.1 % (36.0-47.0); HEMOGLOBIN 13.6 g/dl (12.0-15.5); LYMPH # 1.7 10^3/uL (1.5-4.5); LYMPH % 14.8 % (24.0-44.0); MEAN CORPUSCULAR HGB CONC 33.9 g/dl (32.0-36.5); MEAN CORPUSCULAR VOLUME 91.3 fl (80.0-96.0); MONO # 1.1 10^3/uL (0.0-0.8); MONO % 10.1 % (0.0-5.0); NEUTROPHILS # 8.3 10^3/uL (1.8-7.7); NEUTROPHILS % 74.3 % (36.0-66.0); PLATELET COUNT, AUTOMATED 225 10^3/uL (150-450); RED BLOOD COUNT 4.39 10^6/uL (4.00-5.40); WHITE BLOOD COUNT 11.2 10^3/uL (4.0-10.0)
[2018-10-06 05:02] LABS: CALCIUM LEVEL 7.9 MG/DL (8.8-10.2); CREATININE FOR GFR 1.31 MG/DL (0.55-1.30); MAGNESIUM LEVEL 2.2 MG/DL (1.8-2.4); POTASSIUM SERUM 3.9 MEQ/L (3.5-5.1)
[2018-10-06 05:36] LABS: ABG BASE EXCESS 1.1 (-2.0-2.0); ABG O2 SATURATION 95.1 % (95.0-99.0); ABG PARTIAL PRESSURE O2 76.8 mmHg (75.0-100.0); ABG STANDARD HCO3 25.4 MEQ/L (22.0-26.0); ABG TOTAL CO2 27.3 MEQ/L (23.0-31.0); ABG pH (ARTERIAL) 7.409 UNITS (7.350-7.450)
[2018-10-06] MEDS: ceFAZolin SOD 1 GM in D5W MINI-BAG PLUS 50 ML IV SCH ×3 (07:00→23:00)
--- NOTE | 2018-10-06 08:31 | REP ---
A PA and lateral chest, the patient semi upright: Comparison is 10/05/2018.. The two left thoracotomy tubes are unchanged. There is no pneumothorax or pleural fluid collection. The subcutaneous emphysema along the left lateral chest wall has decreased. There is a focal density associated with the right minor fissure, unchanged, possibly a small volume of pleural fluid in the fissure. There is discoid atelectasis superimposed over the right hilus, unchanged. The epidural catheter is unchanged. Impression: No significant interval change. Electronically Signed by Rafal Bentley MD 10/06/2018 08:22 A
[2018-10-06] MEDS: MOM 30ML SUSPENSION UDC PO SCH (09:42)
[2018-10-06] MEDS: DOCUSATE SODIUM 100 MG CAP PO SCH ×2 (09:43→20:08)
[2018-10-06] MEDS: LACTIC ACID 12% LOTION 225 GM BTL TOP SCH ×2 (09:43→20:09)
[2018-10-06] MEDS: SITagliptin 50 MG TAB (JANUVIA) PO SCH (09:43)
[2018-10-06] MEDS: PANTOPRAZOLE 40MG TAB (PROTONIX) PO SCH (09:43)
[2018-10-06] MEDS: ENALAPRIL MALEATE 10 MG TAB PO SCH ×2 (09:44→20:09)
[2018-10-06] MEDS: HEPARIN SOD (PORCINE) 5000 UNITS/ML VIAL SC SCH ×2 (09:45→20:09)
[2018-10-06] MEDS: FENTANYL/BUPIVACAINE/NACL BAG 250 ML EPIDURAL SCH (11:53)
--- NOTE | 2018-10-06 13:39 | IPN ---
DATE: 10/06/2018 This is now the first postoperative for Mrs. Fields. She is almost pain free, she is quite weak and fatigued. I suspect that her epidural, while only going at 10, is affecting her and I will decrease her epidural. She is breathing well and her blood gases have normalized. Her vital signs show a T-max of 99.6 with a heart rate that ranges between 95 and 84 and is sinus rhythm, respiratory rate of 20 to 22 without the use of accessory muscles, who is 90-94% saturated on 3 liters nasal cannula and whose blood pressure is ranging between 150-160/63-68. Her intake and output the past 24 hours has been recorded as 2130 in and 591 out for a positivity of 1539 mL. She has put 206 mL out the chest and 250 mL in the last 12 hours. I do not see an air leak, although the nursing staff did. Weight today is 84.6 kg compared to 85 kg yesterday. On physical examination, she has diffuse rales and rhonchi throughout both lungs. I do not hear wheezing. Percussion note is full to the diaphragm. Cardiac exam is without murmurs, clicks, gallops or rubs. I cannot feel his point of maximal impulse (PMI). S1 and S2 are normal. Abdomen is soft and nontender. Bowel sounds are positive. There is no hepatomegaly. No costovertebral angle (CVA) tenderness. Extremities show trace pretibial edema. No calf tenderness. No differential swelling of the upper extremities. Skin is warm, dry and perfused without cyanosis or mottling including that of the nail beds and the knees. Neck is supple. There is no jugular venous distention. No subcutaneous emphysema. Trachea is midline. Mouth shows her mucous membranes to be pink and moist. Lips and commissures are without lesions. There is no thrush. Eyes show her pupils to be equal, reactive. Extraocular motors are intact. Sclera nonicteric. Neuro shows II through XII intact, along with gross motor and gross sensation intact. Gait is not tested. Psychiatric shows her to be awake and alert, oriented times three with appropriate mood, affect and conversational. Her white count today is 11.2 with a hemoglobin and hematocrit of 13.6 and 40.1 respectively with a platelet count of 255 and stable. Differential shows 74% neutrophils, 14% lymphocytes, 10% monocytes. There are no immature forms, no toxic granulations. Her chemistries are normal, however with a BUN and creatinine of 21 and 1.31, which is improved from her immediate postoperative values of 20 and 1.71. Glucose is 221 with a calcium of 7.9 and magnesium of 2.2. She was hypomagnesemic yesterday and she got two runs of magnesium. Her blood gases show a pH of 7.409, pCO2 of 42 and a PaO2 of 76 on 3 liters nasal cannula with a base excess of 1.1. She has completely resolved her mild acidemia. Her chest x-ray shows her lung fully expanded to the chest wall. There is obligate volume loss from the lobectomy on the left side. Costophrenic angles are sharp and I see just minimal subcutaneous emphysema in the right lateral upper chest wall. I see no other infiltrates. She has some fluid int he right minor fissure on the lateral chest x-ray and chest tubes are in good place. Pathology has been reported back as moderately differentiated squamous cell carcinoma, 2.2 cm in its greatest dimensions. Her mediastinal nodes are negative and 3 peribronchial nodes are negative for carcinoma. This gives her a stating of [id number], or stage IA2. IMPRESSION: 1. Moderately differentiated squamous cell carcinoma left upper lobe. 2. Renal insufficiency improving. 3. Obesity. 4. Diabetes. 5. Hypertension. 6. Chronic obstructive pulmonary disease (COPD). 7. Hyperlipidemia. PLAN: I will keep her chest tubes on suction. I will keep her in the ICU today. I will not yet diurese her. We will decrease her epidural until she starts to have pain and hopefully address the fatigue. She was not able to stand today to go to x-ray and had to be taken in her bed.
[2018-10-06] MEDS: ATORVASTATIN 20 MG TAB PO SCH (20:09)
[2018-10-07] VITALS (7 sets, daily range): BP systolic 131–161; BP diastolic 61–75
[2018-10-07] MEDS: LEVALBUTEROL 1.25 MG/0.5 ML CONCENTRATE NEB NEB SCH ×4 (02:23→20:00)
[2018-10-07 06:18] LABS: BASO # 0.1 10^3/uL (0.0-0.2); BASO % 0.5 % (0.0-1.0); EOS % 0.4 % (0.0-3.0); HEMATOCRIT 37.9 % (36.0-47.0); HEMOGLOBIN 12.7 g/dl (12.0-15.5); LYMPH # 1.7 10^3/uL (1.5-4.5); LYMPH % 15.3 % (24.0-44.0); MEAN CORPUSCULAR HEMOGLOBIN 31.1 pg (27.0-33.0); MEAN CORPUSCULAR HGB CONC 33.5 g/dl (32.0-36.5); MEAN CORPUSCULAR VOLUME 92.9 fl (80.0-96.0); MONO # 1.1 10^3/uL (0.0-0.8); MONO % 10.3 % (0.0-5.0); NEUTROPHILS % 72.7 % (36.0-66.0); PLATELET COUNT, AUTOMATED 198 10^3/uL (150-450); RED BLOOD COUNT 4.08 10^6/uL (4.00-5.40)
[2018-10-07 06:53] LABS: CREATININE FOR GFR 1.01 MG/DL (0.55-1.30); POTASSIUM SERUM 4.6 MEQ/L (3.5-5.1)
[2018-10-07] MEDS: ceFAZolin SOD 1 GM in D5W MINI-BAG PLUS 50 ML IV SCH (07:53)
[2018-10-07] MEDS: SODIUM CHLORIDE HYPERTONIC 3% 15ML NEB SOL INH SCH ×4 (08:00→20:00)
[2018-10-07] MEDS: ACETYLCYSTEINE 20% 4 ML VIAL (200MG/ML) INH SCH ×3 (08:00→20:00)
--- NOTE | 2018-10-07 08:40 | REP ---
PA and lateral chest: Comparison is 10/06/2018. The two left thoracotomy tubes are unchanged. There is no left pneumothorax. There is no visible subcutaneous emphysema along the left lateral chest wall. The linear density associated with the right minor fissure is again identified, nonspecific, fluid within the fissure, atelectasis, or imaging artifact from the fissure. The right lung is otherwise clear. Cardiac size is normal. The epidural catheter is unchanged. Electronically Signed by Rafal Bentley MD 10/07/2018 08:31 A
[2018-10-07] MEDS: HEPARIN SOD (PORCINE) 5000 UNITS/ML VIAL SC SCH ×2 (09:21→21:00)
[2018-10-07] MEDS: ENALAPRIL MALEATE 10 MG TAB PO SCH ×2 (09:21→21:09)
[2018-10-07] MEDS: MOM 30ML SUSPENSION UDC PO SCH (09:21)
[2018-10-07] MEDS: PANTOPRAZOLE 40MG TAB (PROTONIX) PO SCH (09:21)
[2018-10-07] MEDS: SITagliptin 50 MG TAB (JANUVIA) PO SCH (09:21)
[2018-10-07] MEDS: DOCUSATE SODIUM 100 MG CAP PO SCH ×2 (09:21→21:08)
[2018-10-07] MEDS: LACTIC ACID 12% LOTION 225 GM BTL TOP SCH ×2 (09:22→21:00)
--- NOTE | 2018-10-07 14:10 | IPN ---
DATE: 10/07/2018 This is now the second postoperative day for Mrs. Fields. She has a very thick cough with lots of audible rhonchi without being able to get her sputum up. She sounds quite rattly. She is not complaining of all that much pain however. She still feels weak. Her epidural is at 6, down from 8 yesterday. Her vital signs show a T-max of 99.6 with a heart rate that ranges between 97 and 92 in a sinus rhythm, a respiratory rate of 18 to 20 without the use of accessory muscles who is 91-93% saturated on 2 liters nasal cannula. Blood pressure is ranging between 141/63 to 179/72. On physical examination, she has very coarse rhonchi throughout both lungs. It was noted at the time of surgery she had very thick secretions. I do not hear wheezing. Percussion note is full to the diaphragm. Cardiac exam is without murmurs, clicks, gallops or rubs. I cannot feel her point of maximal impulse (PMI). S1 and S2 are normal. Abdomen is soft and nontender. Bowel sounds are positive. There is no hepatomegaly. No costovertebral angle (CVA) tenderness. Extremities show no pretibial edema. No calf tenderness. No differential swelling of the upper extremities. Skin is warm, dry and perfused without cyanosis or mottling including that of the nail beds and the knees. Neck is supple. There is no jugular venous distention. No subcutaneous emphysema. Trachea is midline. Mouth shows her mucous membranes to be pink and moist. Lips and commissures are without lesions. There is no thrush. Eyes show her pupils to be equal, reactive. Extraocular motors are intact. Sclera nonicteric. Neuro shows II through XII intact, along with gross motor and gross sensation intact. Gait is described below. Psychiatric shows her to be awake and alert, oriented times three with appropriate mood, affect and conversational. I walked her today behind a wheelchair. She limps on her left leg because of her gout which is unchanged from her preoperative status. Nonetheless, she does seem very weak and has difficult standing up straight. I am therefore going to wean the epidural again. Her white count today is 11.0 down from 11.2 and 14.9 the last two days with hemoglobin and hematocrit of 12.7 and 37.9. Platelet count is 198 with differential of 72% neutrophils, 15% lymphocytes, 10% monocytes. There are no immature forms and no toxic granulations. Her electrolytes are normal with a normalized BUN and creatinine of 20 and 1.01, down from 1.71 immediately postoperatively. Glucose is 246 with a calcium of 8.0. There are no blood gases on her today. Her intake and output the past 24 hours was recorded as 2000 in and 1670 out for a positive of 330 mL. She has put out 345 mL from the chest tube and I see no air leak. Her chest x-ray today shows her lung fully expanded to the chest wall. There is fluid in the minor fissure. Chest tubes are in good place. There looks to be some faint opacification in the left lower hemithorax at the costophrenic angle, but I think it is because of her increased breast tissue and morbid obesity. There is no subcutaneous emphysema and the mediastinum is in the midline. Pathology has been returned as moderately differentiated squamous cell carcinoma 2.2 cm in its largest dimensions with a TNM classification of [id number], making her a stage I A2 final stage. She will not need adjuvant chemotherapy. IMPRESSION: 1. Postoperative day #2 status post left upper lobectomy. 2. Moderately differentiated squamous cell carcinoma left upper lobe Stage I A2. 3. Renal insufficiency, improved and resolved. 4. Obesity. 5. Diabetes. 6. Hypertension. 7. Chronic obstructive pulmonary disease (COPD). 8. Hyperlipidemia. 9. Generalized weakness. PLAN AND DISCUSSION: As noted above, I am going to again wean the epidural. We did walk to the doors of the intensive care unit. While she was able to traverse that distance it was with great difficulty and she continually wanted to bend her back and not stand up straight as if she were weakened. I have started her on nebulized hypertonic saline to increase her cough along with Mucomyst. I will start her on Acapella in addition to the other respiratory expansion modalities. I am gratified that she does not have an air leak. I will not diurese her today.
[2018-10-07] MEDS: KETOROLAC 30 MG/ML VIAL (J1885) IV SCH ×2 (14:19→21:09)
[2018-10-07] MEDS: FENTANYL/BUPIVACAINE/NACL BAG 250 ML EPIDURAL SCH (14:22)
[2018-10-07] MEDS: ATORVASTATIN 20 MG TAB PO SCH (21:08)
[2018-10-08] VITALS: BP 136/72
[2018-10-08] MEDS: LEVALBUTEROL 1.25 MG/0.5 ML CONCENTRATE NEB NEB SCH ×4 (02:00→20:28)
[2018-10-08] MEDS: SODIUM CHLORIDE HYPERTONIC 3% 15ML NEB SOL INH SCH ×6 (03:51→20:28)
[2018-10-08 04:00] VITALS: BP 165/74
[2018-10-08 05:01] LABS: BASO # 0.1 10^3/uL (0.0-0.2); BASO % 0.6 % (0.0-1.0); EOS # 0.3 10^3/uL (0.0-0.50); EOS % 3.1 % (0.0-3.0); HEMATOCRIT 35.3 % (36.0-47.0); HEMOGLOBIN 11.8 g/dl (12.0-15.5); LYMPH # 2.1 10^3/uL (1.5-4.5); MEAN CORPUSCULAR HEMOGLOBIN 30.9 pg (27.0-33.0); MEAN CORPUSCULAR HGB CONC 33.4 g/dl (32.0-36.5); MEAN CORPUSCULAR VOLUME 92.4 fl (80.0-96.0); MONO # 1.2 10^3/uL (0.0-0.8); NEUTROPHILS # 7.1 10^3/uL (1.8-7.7); NEUTROPHILS % 65.5 % (36.0-66.0); PLATELET COUNT, AUTOMATED 192 10^3/uL (150-450); RED BLOOD COUNT 3.82 10^6/uL (4.00-5.40); WHITE BLOOD COUNT 10.9 10^3/uL (4.0-10.0)
[2018-10-08 05:21] LABS: CALCIUM LEVEL 8.5 MG/DL (8.8-10.2); CREATININE FOR GFR 1.06 MG/DL (0.55-1.30); GLOMERULAR FILTRATION RATE 54.9 (>45); POTASSIUM SERUM 4.6 MEQ/L (3.5-5.1)
[2018-10-08] MEDS: KETOROLAC 30 MG/ML VIAL (J1885) IV SCH ×3 (06:00→22:00)
[2018-10-08 08:00] VITALS: BP 127/59
--- NOTE | 2018-10-08 08:03 | REP ---
PA and lateral chest: Comparison is 10/07/2018. The two left thoracotomy tubes are unchanged. There is no left pneumothorax. The previously identified transverse linear density along the right minor fissure has resolved. This may have represented pleural fluid in the minor fissure or right upper lobe atelectasis. Slight effacement right costophrenic angle, as an interval change, suggesting a new small right pleural effusion. Cardiac size is normal. The jannet, mediastinum, skeletal structures are unchanged. Impression: The horizontal linear density associated with the right minor fissure has resolved, likely atelectasis or pleural fluid has resolved. Slight effacement of the right costophrenic angle as an interval change suggesting a new small right pleural effusion. Otherwise, no interval change. Electronically Signed by Rafal Bentley MD 10/08/2018 07:54 A
[2018-10-08] MEDS: ACETYLCYSTEINE 20% 4 ML VIAL (200MG/ML) INH SCH ×2 (08:05→20:28)
--- NOTE | 2018-10-08 08:19 | IPN ---
DATE: 10/08/2018 This is now the third postoperative day for Mrs. Fields. She is doing much better today than she was yesterday. She is not as congested and not as crackly today. I put her both hypotonic saline and Mucomyst to clear her secretions and to thin them out. Her vital signs show a T-max of 98.5 with a heart rate that ranges between 81 and 72 and is sinus rhythm, with a respiratory rate that is constant at 18, who is 94% saturated on 2 liters nasal cannula, and whose blood pressure is ranging between 131/61 to 161/74. Her intake and output over the past 24 hours has been recorded as 1221 in and 935 out for a positivity of 286 mL. She has put 125 mL out the chest tube and there is no air leak. On physical examination, her lungs show diffuse rhonchi and rales, but much better than they were yesterday. Percussion note is full to the diaphragm. Cardiac exam is without murmurs, clicks, gallops or rubs. I cannot feel her point of maximal impulse (PMI) through her morbid obesity. S1 and S2 are normal. Abdomen is soft and nontender. Bowel sounds are positive. I do not appreciate hepatomegaly and there is no costovertebral angle (CVA) tenderness. Extremities show trace pretibial edema. No calf tenderness. No differential swelling of the upper extremities. Skin is warm, dry and perfused without cyanosis or mottling including that of the nail beds and the knees. Neck is supple. There is no jugular venous distention. No subcutaneous emphysema. Trachea is midline. Mouth shows her mucous membranes to be pink and moist. Lips and commissures are without lesions. There is no thrush. Eyes show her pupils to be equal and reactive. Extraocular motors are intact. Sclera nonicteric. Neuro shows II through XII intact, along with gross motor and gross sensation intact. Gait is not tested. Psychiatric shows her to be awake and alert, oriented times three with appropriate mood, affect and conversational. Her chest x-ray today show obligate volume loss of the left lung from the lobectomy. The lung is otherwise fully expanded to the chest wall. The costophrenic angle looks slightly blunted on the left. The lateral chest x-ray shows no infiltrates and the costophrenic angles are sharp. There is no subcutaneous emphysema. IMPRESSION: 1. Postoperative day #3 status post left upper lobectomy. 2. Moderately differentiated squamous cell carcinoma left upper lobe Stage IA2. 3. Renal insufficiency, resolved. 4. Obesity. 5. Diabetes. 6. Hypertension. 7. Chronic obstructive pulmonary disease (COPD). 8. Hyperlipidemia. 9. Generalized weakness, much improved. PLAN AND DISCUSSION: I will take her chest tubes off suction today. As she is not putting much out the chest tube I will refrain from diuresing her. We need to now aggressively ambulate her. She is looking a lot stronger now that she is only on an epidural rate of 4. Her pain is being well controlled, gratifyingly.
[2018-10-08] MEDS: MOM 30ML SUSPENSION UDC PO SCH (09:27)
[2018-10-08] MEDS: ENALAPRIL MALEATE 10 MG TAB PO SCH ×2 (09:28→20:39)
[2018-10-08] MEDS: SITagliptin 50 MG TAB (JANUVIA) PO SCH (09:28)
[2018-10-08] MEDS: PANTOPRAZOLE 40MG TAB (PROTONIX) PO SCH (09:29)
[2018-10-08] MEDS: HEPARIN SOD (PORCINE) 5000 UNITS/ML VIAL SC SCH ×2 (09:29→20:41)
[2018-10-08] MEDS: DOCUSATE SODIUM 100 MG CAP PO SCH ×2 (09:29→20:39)
[2018-10-08] MEDS: LACTIC ACID 12% LOTION 225 GM BTL TOP SCH ×2 (09:31→20:40)
[2018-10-08] MEDS: FENTANYL/BUPIVACAINE/NACL BAG 250 ML EPIDURAL SCH (11:04)
[2018-10-08 12:03] VITALS: BP 182/77
[2018-10-08 13:12] VITALS: BP 182/83
[2018-10-08] MEDS: BISOPROLOL FUMARATE 10 MG TAB PO SCH ×2 (14:43→20:39)
[2018-10-08 20:00] VITALS: BP 122/90
[2018-10-08] MEDS: ATORVASTATIN 20 MG TAB PO SCH (20:39)
[2018-10-09] VITALS (22 sets, daily range): BP systolic 87–163; BP diastolic 44–95
[2018-10-09] MEDS: SODIUM CHLORIDE HYPERTONIC 3% 15ML NEB SOL INH SCH ×6 (00:47→19:46)
[2018-10-09] MEDS: LEVALBUTEROL 1.25 MG/0.5 ML CONCENTRATE NEB NEB SCH ×5 (00:48→13:28)
[2018-10-09 04:29] LABS: BASO # 0.1 10^3/uL (0.0-0.2); BASO % 0.5 % (0.0-1.0); EOS # 0.4 10^3/uL (0.0-0.50); EOS % 3.6 % (0.0-3.0); HEMATOCRIT 37.8 % (36.0-47.0); HEMOGLOBIN 12.7 g/dl (12.0-15.5); LYMPH # 2.5 10^3/uL (1.5-4.5); LYMPH % 21.3 % (24.0-44.0); MEAN CORPUSCULAR HEMOGLOBIN 31.1 pg (27.0-33.0); MEAN CORPUSCULAR HGB CONC 33.6 g/dl (32.0-36.5); MEAN CORPUSCULAR VOLUME 92.4 fl (80.0-96.0); MONO # 1.2 10^3/uL (0.0-0.8); MONO % 10.6 % (0.0-5.0); NEUTROPHILS # 7.3 10^3/uL (1.8-7.7); NEUTROPHILS % 63.2 % (36.0-66.0); PLATELET COUNT, AUTOMATED 251 10^3/uL (150-450); RED BLOOD COUNT 4.09 10^6/uL (4.00-5.40); WHITE BLOOD COUNT 11.6 10^3/uL (4.0-10.0)
[2018-10-09 04:47] LABS: BLOOD UREA NITROGEN 29 MG/DL (7-18); CALCIUM LEVEL 8.9 MG/DL (8.8-10.2); CARBON DIOXIDE LEVEL 29 MEQ/L (21-32); CHLORIDE LEVEL 103 MEQ/L (98-107); CREATININE FOR GFR 0.92 MG/DL (0.55-1.30); GLOMERULAR FILTRATION RATE > 60.0 (>45); GLUCOSE, FASTING 198 MG/DL (70-100); SODIUM LEVEL 137 MEQ/L (136-145)
[2018-10-09] MEDS: KETOROLAC 30 MG/ML VIAL (J1885) IV SCH ×3 (06:08→21:03)
[2018-10-09] MEDS: ACETYLCYSTEINE 20% 4 ML VIAL (200MG/ML) INH SCH ×2 (07:34→19:47)
--- NOTE | 2018-10-09 08:11 | REP ---
PA and lateral chest: Comparison is 10/08/2018. The patient is rotated. The heart and mediastinum obscure almost the entire left hemithorax. The two left thoracotomy tubes are unchanged. The right lung is clear. The epidural catheter is unchanged. Impression: No significant interval change except that the the patient is rotated. Electronically Signed by Rafal Bentley MD 10/09/2018 08:03 A
[2018-10-09 08:18] LABS: MAGNESIUM LEVEL 2.1 MG/DL (1.8-2.4)
--- NOTE | 2018-10-09 08:50 | REP ---
Portable chest, a 19 a.m., single AP semi upright view: Comparison is 10/08/2018 and PA and lateral chest earlier today. The patient is not rotated. The two left thoracotomy tubes are unchanged. The visualized left lung is unremarkable. Right lung is clear. There is volume loss in the left hemithorax as a consequence of left upper lobectomy. The epidural catheter is unchanged. Electronically Signed by Rafal Bentley MD 10/09/2018 08:41 A
--- NOTE | 2018-10-09 08:51 | IPN ---
DATE OF SERVICE: 10/09/2018 This is now the fourth postoperative day for Mrs. Fields. Her pain is being well controlled and she says that she is breathing well. However on physical examination, she has decreased breath sounds on the left side with transmitted bronchophony. Physical findings are confirmed on chest x-ray where she has now mucous plugged her left lower lobe. Her vital signs show a T-max of 99.2 with a heart rate that ranges between 86-75 and what looks like to be a sinus rhythm but on the monitor has peaked Ts. Her respiratory rate is 20-22 without the use of accessory muscles and she is 92% saturated on 2 liters nasal cannula. Blood pressure is ranging between 122-90 to 162/70. Her intake and output over the past 24 hours has been recorded at 600 in and 1500 out for a negativity of 900 mL. She has put out 180 mL from the chest tube and there is no air leak. Weight today is 87.6 kg compared to 88.6 kg two days ago. On physical examination, her left lung shows bronchophony and egophony. Percussion note is dull in the midlung field down to the base. Right lung shows scattered rhonchi. Percussion note is full to the diaphragm on the right side. Cardiac exam shows bradycardia without murmurs, clicks, gallops or rubs. I cannot feel her PMI through her obesity. S1 and S2 are normal. Abdomen is soft, nontender, bowel sounds are positive. There is no hepatomegaly that I can feel through her obesity. There is no CVA tenderness. Extremities show no pretibial edema. No calf tenderness. No differential swelling of the upper extremities. Skin is warm, dry and perfused without cyanosis or mottling including that of the nail beds and knees. Neck is supple. There is no jugular venous distention. No subcutaneous emphysema. Trachea is midline. Mouth shows her mucous membranes to be pink and moist. Lips and commissures are without lesions. No thrush. Eyes show her pupils to be equal and reactive. Extraocular motor intact. Sclera anicteric. Neuro shows II through XII intact with gross motor and gross sensation intact. Gait is not tested. Psychiatric shows her to be awake and alert, oriented times three with appropriate mood and affect and conversational. Her electrolytes today show potassium of 5.0 with a BUN and creatinine of 29 and 0.92 respectively. Glucose is 198 with a calcium of 8.9. White count is 11.6 up from 10.9 yesterday. Hemoglobin and hematocrit are 12.7 and 37.8 increased from 11.8 and 35.3 yesterday. Platelet count is 251 and stable and differential shows 63% neutrophils, 21% lymphocytes, 10% monocytes. There are no immature forms. No toxic granulations. Her magnesium is pending. Magnesium two days ago was 2.2 after two runs of magnesium sulfate. Her chest x-ray now shows a collapsed left lower lobe with a sharp cut off at the main stem bronchus. There is mediastinal shift to the left with volume loss. I cannot see the diaphragm. Her chest tubes are in good place and there is no subcutaneous emphysema. IMPRESSION: 1. Postoperative day #4 status post left upper lobectomy. 2. 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 3. Renal insufficiency resolved. 4. Obesity. 5. Diabetes. 6. Hypertension. 7. Chronic obstructive pulmonary disease (COPD). 8. Hyperlipidemia. 9. Generalized weakness improved. 10. Mucous plugging of remaining left lower lobe. 11. Bradycardic PVCs. PLAN AND DISCUSSION: Two days ago, I instituted both hypertonic saline and Mucomyst to loosen up her secretions. Findings at operation showed very thick secretions which were suction and aspirated both preprocedure and postprocedure. I had concerns the first postoperative day with her secretions and hence starting the hypertonic saline and Mucomyst. I also put her Acapella. Today she has now mucous plugged nearly her remaining left lower lobe. I will start therapy vest every 2 hours and I have asked Dr. Carr to evaluate her for possible bronchoscopy and removal of mucous plugging. We are encouraging her to cough. Pain does not seem to be a factor in her coughing and she is able to do so but not able to bring up her secretions. She is on Vasotec and Zebeta at home for hypertension. She has bradycardia with what look like peaked Ts on the monitor. She also had multiple PVCs. I have discontinued her Zebeta for the time being. I have asked Dr. Becerril to see her as he saw her in preoperative evaluation for her bradycardia and PVCs. It does not look as if she has any acute changes and I will, however, obtain a stat EKG.
[2018-10-09] MEDS: PANTOPRAZOLE 40MG TAB (PROTONIX) PO SCH (08:53)
[2018-10-09] MEDS: DOCUSATE SODIUM 100 MG CAP PO SCH ×2 (08:53→21:03)
[2018-10-09] MEDS: MOM 30ML SUSPENSION UDC PO SCH (08:53)
[2018-10-09] MEDS: SITagliptin 50 MG TAB (JANUVIA) PO SCH (08:54)
[2018-10-09] MEDS: HEPARIN SOD (PORCINE) 5000 UNITS/ML VIAL SC SCH ×2 (08:54→21:03)
[2018-10-09] MEDS: LACTIC ACID 12% LOTION 225 GM BTL TOP SCH ×2 (08:55→21:05)
[2018-10-09] MEDS: ENALAPRIL MALEATE 10 MG TAB PO SCH ×2 (08:55→21:04)
[2018-10-09] MEDS: **hydrALAZINE** 10 MG TAB PO SCH ×3 (10:55→21:00)
[2018-10-09] MEDS: BISOPROLOL FUMARATE 5 MG TAB PO SCH ×2 (10:56→21:04)
--- NOTE | 2018-10-09 11:19 | REP ---
Portable chest x-ray: Single view. 10:52 a.m. film. History: Follow-up. Postop left upper lobectomy. Comparison study is from 08:19 a.m. on this same date. Findings: There is a small quantity of pneumothorax at the apex and at the base of the left chest. The left lower lobe remains atelectatic and opaque. There is an abrupt amputation of the left mainstem bronchial silhouette suggesting the possibility of mucous plugging. Two left chest tubes remain in place near the apex. An epidural catheter is again seen. The right lung is clear. Impression: Two left chest tubes. Small left-sided pneumothorax with left apical and subpulmonic pleural air similar to the earlier film. Atelectasis in the left lower lobe. Question mucous plugging. Electronically Signed by Jacob Luna MD 10/09/2018 11:10 A
[2018-10-09] MEDS ORDERED: MIDAZOLAM INJ 2 MG/2 ML VIAL (J2250) As Ordered ONE (11:35)
[2018-10-09] MEDS ORDERED: LIDOCAINE 1% MDV 20ML VIAL As Ordered ONE (11:42)
[2018-10-09] MEDS ORDERED: LIDOCAINE 1% MDV 20ML VIAL TOP ONE (12:30)
[2018-10-09] MEDS ORDERED: MIDAZOLAM INJ 2 MG/2 ML VIAL (J2250) IV ONE (12:30)
--- NOTE | 2018-10-09 12:53 | RO ---
DATE OF PROCEDURE: 10/09/2018 PREOPERATIVE DIAGNOSIS: Mucous plugging. POSTOPERATIVE DIAGNOSIS: Mucous plugging. PROCEDURE: Therapeutic bronchoscopy with aspiration secretions. SURGEON: Nate Carr MD CIRCULAR STUFFER: ANESTHESIA: 2 mg Xylocaine jelly in the nasal passages and 1% Xylocaine via the bronchoscope. Informed consent was obtained prior to procedure. OPERATIVE FINDINGS: Complete obstruction left mainstem bronchus by retained secretions. DESCRIPTION OF PROCEDURE: After the patient identified and the above anesthesia given, the patient was placed on 100% nonbreather. The fiberoptic bronchoscope was easily passed via the left nares. There were some retained secretions in the pharynx, easily suctioned clear. Vocal cords moved well. Some mucus was seen expectorating from below the level of the cords and suctioned clear. Scope was then passed beyond the level of the cords. Very tenacious secretions were seen pooled in the left mainstem. These were thick to the point where they would not even come through the scope. Multiple passes with the bronchoscope had to be made before the segments were able to be adequately identified. The stump of the left upper lobectomy looked as expected. There was some minimal bleeding from that area. Attention was then returned to the lower lobe. With saline lavage and suctioning, eventually all segments, subsegments of the lower lobe were able to be cleared of thick secretions. Some small distal plugs were occasionally encountered with lavage. Oxygen saturation improved from 88% to 97% on nonrebreather. Scope was then withdrawn and procedure terminated. Oxygen saturation 94% postprocedure on 2 liters nasal cannula. No immediate complications of conscious sedation were identified, and adequate hemostasis was noted prior to withdrawal of the scope.
[2018-10-09] MEDS: FENTANYL/BUPIVACAINE/NACL BAG 250 ML EPIDURAL SCH (13:06)
--- NOTE | 2018-10-09 16:54 | ECGEPIP ---
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 Otherwise normal Ventricular ectopy is new from 09/22/18 Clinical correlation advised. Electronically Signed On 10-09-2018 16:54:44 EDT by Tong Mendoza
--- NOTE | 2018-10-09 18:07 | CR ---
DATE OF CONSULTATION: 10/09/2018 REFERRING PHYSICIAN: Dr. Homero Amado INDICATION: Ventricular ectopy. HISTORY OF THE PRESENT ILLNESS: I was asked by Dr. Amado to see Mrs. Fields for frequent ventricular ectopy that occurred as of this morning. The patient is known to me; I saw her on an outpatient basis for preoperative clearance. She is a 68-year-old lady who was diagnosed with lung cancer and underwent a lobectomy by Dr. Amado. She was considered relatively high risk due to several risk factors for coronary artery disease and consequently we ended up doing an echocardiogram and nuclear stress test. Both studies were benign, and she was cleared for surgery. The postoperative course so far has been relatively uneventful other than collapse of the left lung, which occurred probably earlier today as evidenced by the film compared to older studies. I was asked to see her after very frequent ectopy was noted including prolonged runs of ventricular bigemini. At bedside, the patient feels relatively comfortable. She denies any chest discomfort or difficulty breathing. She also has no awareness of any palpitations or irregular heartbeat. PAST MEDICAL HISTORY: Positive for type 2 diabetes, obesity, hypertension, dyslipidemia, chronic obstructive pulmonary disease (COPD), arthritis, gout. SURGICAL HISTORY: Positive for cholecystectomy and as of now, left upper lobe resection. FAMILY HISTORY: Son is hypertensive. SOCIAL HISTORY: The patient quit smoking in June of this year after many years. There is no significant alcohol use. REVIEW OF SYSTEMS: At her baseline, she was quite sedentary, able to ambulate limited amount and limited by dyspnea. She did not have any anginal symptoms. There is no history of stroke. There is no history of bleeding. The rest is negative or as per HPI. PHYSICAL EXAMINATION: Last set of vital signs revealed a blood pressure of 152/60, heart rate in 90s, currently ventricular bigeminy, respiratory rate 22, saturation was 90% on 3 liters of oxygen. She is sitting in intensive care unit (ICU) bed. There is an epidural catheter in place, and there is a chest tube in her left lung. She is alert and oriented and appropriate. Her jugular venous pressure (JVP) is not high. Lungs are relatively clear on the right. On the left, there are only sounds audible from the chest tube. I do not appreciate any air movement as such, there is resonance to percussion most dominantly over the upper parts of the left lung field. The thoracotomy scar is without signs of bleeding. Abdomen is morbidly obese but soft. There is no peripheral edema. Peripheral pulses are palpable. LABORATORY DATA: As of this morning, CBC was normal but for mild elevation of WBC count 11.6. Basic metabolic panel was normal but for glucose 198, potassium was 5.0, magnesium 2.1. She had an ECG that revealed baseline narrow QRS complex without ST-T abnormalities and monomorphic PVCs in bigeminal pattern. ASSESSMENT AND PLAN: Mrs. Fields is a 68-year-old female who has multiple risk factors for coronary artery disease that include the presence of type 2 diabetes, hypertension and dyslipidemia, who had a left upper lobectomy and currently has very frequent premature ventricular contractions (PVCs). I reviewed her numerous telemetry strips in the computer. I did not find any more complex ventricular ectopy other than bigeminy. There was no nonsustained ventricular tachycardia. There were no pauses. This is a relatively benign entity, and I do not believe that it requires any specific intervention. It is possible that her collapse of left lung may be contributing. Besides monitoring, I do not recommend any further interventions. The second issue is hypertension. She does have for quite variable blood pressure, but yesterday had episodes where her blood pressure was elevated for several hours. At her baseline, she takes bisoprolol, enalapril and amlodipine as her antihypertensive medications. Because amlodipine takes a long time to become effective, I will give her an order for hydralazine to be used as needed for systolic blood pressure over 160. Otherwise, I believe the enalapril and bisoprolol can be continued. I am going to reduce the dose of bisoprolol to 5 mg twice a day, which I consider the maximum standard dose. I do not intend to follow the patient further, but if further assistance is necessary, please do not hesitate to contact cardiology optimization specialist. Unfortunately, I will be off for the next week so Dr. Dinh will be covering during the week and [facility] during this weekend.
--- NOTE | 2018-10-09 19:45 | REP ---
Portable chest x-ray: Single view. History: Status post bronchoscopy for mucous plugging. Comparison is made with the 10:52 a.m. film on this date. Findings: Epidural catheter and two left chest tubes remain in place. EKG electrodes are seen. There is a decrease in the amount of pleural air at the apex and left base. There is some pleural thickening along the left lateral chest wall. There is improved aeration in the left lower lobe although considerable volume loss and some increased density persists. Improved visualization of the left mainstem bronchus is seen. Right lung remains clear. Electronically Signed by Jacob Luna MD 10/09/2018 08:17 P
[2018-10-09] MEDS: LEVALBUTEROL 1.25 MG/0.5 ML CONCENTRATE NEB NEB PRN (19:46)
[2018-10-09] MEDS: ATORVASTATIN 20 MG TAB PO SCH (21:03)
[2018-10-10] VITALS (8 sets, daily range): BP systolic 96–156; BP diastolic 53–102
[2018-10-10] MEDS: SODIUM CHLORIDE HYPERTONIC 3% 15ML NEB SOL INH SCH ×7 (02:12→23:44)
[2018-10-10] MEDS: LEVALBUTEROL 1.25 MG/0.5 ML CONCENTRATE NEB NEB SCH ×4 (02:12→19:48)
[2018-10-10 05:06] LABS: BASO # 0.1 10^3/uL (0.0-0.2); BASO % 0.7 % (0.0-1.0); EOS # 0.4 10^3/uL (0.0-0.50); EOS % 4.4 % (0.0-3.0); HEMATOCRIT 38.2 % (36.0-47.0); HEMOGLOBIN 12.7 g/dl (12.0-15.5); LYMPH # 2.2 10^3/uL (1.5-4.5); LYMPH % 22.9 % (24.0-44.0); MEAN CORPUSCULAR HEMOGLOBIN 31.3 pg (27.0-33.0); MEAN CORPUSCULAR HGB CONC 33.2 g/dl (32.0-36.5); MEAN CORPUSCULAR VOLUME 94.1 fl (80.0-96.0); MONO # 1.1 10^3/uL (0.0-0.8); MONO % 12.1 % (0.0-5.0); NEUTROPHILS # 5.5 10^3/uL (1.8-7.7); NEUTROPHILS % 58.6 % (36.0-66.0); PLATELET COUNT, AUTOMATED 253 10^3/uL (150-450); RED BLOOD COUNT 4.06 10^6/uL (4.00-5.40); WHITE BLOOD COUNT 9.5 10^3/uL (4.0-10.0)
[2018-10-10 05:26] LABS: BLOOD UREA NITROGEN 36 MG/DL (7-18); CALCIUM LEVEL 8.5 MG/DL (8.8-10.2); CARBON DIOXIDE LEVEL 28 MEQ/L (21-32); CHLORIDE LEVEL 103 MEQ/L (98-107); CREATININE FOR GFR 1.01 MG/DL (0.55-1.30); GLUCOSE, FASTING 190 MG/DL (70-100); SODIUM LEVEL 140 MEQ/L (136-145); TROPONIN I < 0.02 NG/ML (< 0.10)
[2018-10-10] MEDS: KETOROLAC 30 MG/ML VIAL (J1885) IV SCH ×3 (06:00→21:03)
[2018-10-10] MEDS: ACETYLCYSTEINE 20% 4 ML VIAL (200MG/ML) INH SCH ×2 (07:12→19:48)
--- NOTE | 2018-10-10 08:10 | REP ---
Chest x-ray: Two views. History: Status post left upper lobectomy. Findings: An epidural catheter and two left chest tubes remain in place. EKG monitoring electrodes are seen. There is some pleural thickening noted on the left but is significantly improved aeration is seen and the remaining left lower lobe. Post thoracotomy volume loss again noted in the left hemithorax. Heart is not enlarged unchanged. Right lung remains clear. Lateral view shows some residual discoid atelectasis in the left lower lobe. Impression: Improving aeration on the left. Electronically Signed by Jacob Luna MD 10/10/2018 08:01 A
[2018-10-10] MEDS: **hydrALAZINE** 10 MG TAB PO SCH ×3 (09:00→20:49)
[2018-10-10] MEDS: LACTIC ACID 12% LOTION 225 GM BTL TOP SCH ×2 (09:00→20:50)
[2018-10-10] MEDS: BISOPROLOL FUMARATE 5 MG TAB PO SCH ×2 (09:35→20:48)
[2018-10-10] MEDS: ENALAPRIL MALEATE 10 MG TAB PO SCH ×2 (09:37→20:49)
[2018-10-10] MEDS: DOCUSATE SODIUM 100 MG CAP PO SCH ×2 (09:37→19:58)
[2018-10-10] MEDS: SITagliptin 50 MG TAB (JANUVIA) PO SCH (09:37)
[2018-10-10] MEDS: HEPARIN SOD (PORCINE) 5000 UNITS/ML VIAL SC SCH ×2 (09:38→20:48)
[2018-10-10] MEDS: PANTOPRAZOLE 40MG TAB (PROTONIX) PO SCH (10:00)
[2018-10-10] MEDS: MOM 30ML SUSPENSION UDC PO SCH (10:00)
--- NOTE | 2018-10-10 10:18 | IPN ---
DATE OF VISIT: 10/10/2018 TIME OF VISIT: 909 I again attended Alejandrina Fields here in the intensive care unit. I am rounding today for Dr. Amado. The patient has been examined and the chart is reviewed. She is much more comfortable today. She denies any pain. Chest x-ray shows excellent expansion of the left chest with only a minimal peripheral subsegmental atelectasis. T-max overnight 98.4, blood pressure 130s to 150s systolic, heart rate generally in the 60s, with persistent PVCs and she has been seen by cardiology. Respiratory rate 18 to 20 without accessory muscle use. Chest tube remains on waterseal. Chest x-ray shows the lungs to be fully expanded to the chest wall and there is no obvious air leak on her chest tubes. On exam, she is awake, alert and appropriate, seated in a bedside chair eating breakfast. HEENT: Otherwise normocephalic, atraumatic. Pupils react. Neck is supple, without any thyromegaly or adenopathy. No obvious jugular venous distention (JVD). Mucous membranes of the nose and mouth are moist. The airway is Class II to III. Trachea is in the midline. Chest shows the two left chest tubes have a benign appearance at the site. Incisions clean and dry. There may be a seroma. She does have some scattered rhonchi, but no wheezing. Right chest is fairly clear. Heart exam shows ectopy. Peripheral pulses palpable. Trace edema. Abdomen obese, soft and nontender with active bowel sounds. No convincing organomegaly or masses. Extremities: Without cyanosis or clubbing. Neurologic: She is awake, alert and appropriate. Psych: Shows normal affect. Pulse oximetry currently 93-95% on 3 liters nasal cannula. The most recent laboratories show a white blood cell count of 9.5, hemoglobin 12.4 and platelet count 253,000. No bands in the differential. Sodium 140, potassium 5.0, chloride 103, CO2 28, BUN 36, creatinine 1. IMPRESSION: 1. Status post left upper lobectomy for lung cancer. 2. Moderately differentiated squamous cell carcinoma of the left upper lobe Stage IA2. 3. Mal clearance of secretions with atelectasis. 4. Hypoxemic respiratory failure, oxygen requiring. 5. Renal insufficiency, resolved. 6. Obesity. 7. Non insulin dependent diabetes mellitus. 8. Hypertension. 9. Underlying COPD. 10. Hyperlipidemia. 11. PVCs. At this point, she has shown response to the changes in her pulmonary regimen. We will continue those. Being out of bed helps considerably as well. She underwent bronchoscopy yesterday with quite tenacious secretions, but is doing well today. Laboratories are acceptable. She is eating. Pain control is excellent. She has not had a bowel movement yet. If she does not by tomorrow, we may need to assist her with that. From a cardiology standpoint, she has been seen by Dr. Becerril and we appreciate his opinion. For now, we will continue her current care. Hopefully in the next several days, we will be to D/C her chest tubes depending on drainage and we are monitoring that closely. Will proceed as outlined above. Further recommendations will be made in the progress record as new information becomes available. KATYA
[2018-10-10] MEDS: LEVALBUTEROL 1.25 MG/0.5 ML CONCENTRATE NEB NEB PRN ×3 (11:26→23:44)
[2018-10-10] MEDS: FENTANYL/BUPIVACAINE/NACL BAG 250 ML EPIDURAL SCH (15:13)
[2018-10-10] MEDS: ATORVASTATIN 20 MG TAB PO SCH (20:49)
[2018-10-11] VITALS (7 sets, daily range): BP systolic 121–177; BP diastolic 58–94
[2018-10-11] MEDS: LEVALBUTEROL 1.25 MG/0.5 ML CONCENTRATE NEB NEB SCH ×4 (01:41→20:53)
[2018-10-11] MEDS: SODIUM CHLORIDE HYPERTONIC 3% 15ML NEB SOL INH SCH ×5 (04:12→20:53)
[2018-10-11] MEDS: LEVALBUTEROL 1.25 MG/0.5 ML CONCENTRATE NEB NEB PRN ×3 (04:13→15:35)
[2018-10-11 05:11] LABS: BASO # 0.1 10^3/uL (0.0-0.2); BASO % 0.9 % (0.0-1.0); EOS # 0.6 10^3/uL (0.0-0.50); EOS % 5.9 % (0.0-3.0); HEMATOCRIT 37.5 % (36.0-47.0); HEMOGLOBIN 12.3 g/dl (12.0-15.5); LYMPH % 20.9 % (24.0-44.0); MEAN CORPUSCULAR HEMOGLOBIN 30.5 pg (27.0-33.0); MEAN CORPUSCULAR HGB CONC 32.8 g/dl (32.0-36.5); MEAN CORPUSCULAR VOLUME 93.1 fl (80.0-96.0); MONO % 10.8 % (0.0-5.0); NEUTROPHILS # 5.8 10^3/uL (1.8-7.7); NEUTROPHILS % 60.3 % (36.0-66.0); PLATELET COUNT, AUTOMATED 272 10^3/uL (150-450); RED BLOOD COUNT 4.03 10^6/uL (4.00-5.40); WHITE BLOOD COUNT 9.6 10^3/uL (4.0-10.0)
[2018-10-11 05:25] LABS: CALCIUM LEVEL 8.6 MG/DL (8.8-10.2); CREATININE FOR GFR 1.01 MG/DL (0.55-1.30); POTASSIUM SERUM 4.7 MEQ/L (3.5-5.1)
[2018-10-11] MEDS: KETOROLAC 30 MG/ML VIAL (J1885) IV SCH ×3 (06:29→21:36)
[2018-10-11] MEDS: ACETYLCYSTEINE 20% 4 ML VIAL (200MG/ML) INH SCH ×2 (08:00→20:00)
[2018-10-11] MEDS: HEPARIN SOD (PORCINE) 5000 UNITS/ML VIAL SC SCH ×2 (08:58→20:17)
[2018-10-11] MEDS: PANTOPRAZOLE 40MG TAB (PROTONIX) PO SCH (08:59)
[2018-10-11] MEDS: SITagliptin 50 MG TAB (JANUVIA) PO SCH (08:59)
[2018-10-11] MEDS: MOM 30ML SUSPENSION UDC PO SCH (09:00)
[2018-10-11] MEDS: **hydrALAZINE** 10 MG TAB PO SCH ×3 (09:00→20:18)
[2018-10-11] MEDS: BISOPROLOL FUMARATE 5 MG TAB PO SCH ×2 (09:00→20:18)
[2018-10-11] MEDS: DOCUSATE SODIUM 100 MG CAP PO SCH ×2 (09:00→20:18)
[2018-10-11] MEDS: LACTIC ACID 12% LOTION 225 GM BTL TOP SCH ×2 (09:00→20:19)
[2018-10-11] MEDS: ENALAPRIL MALEATE 10 MG TAB PO SCH ×2 (09:01→20:17)
[2018-10-11] MEDS: FENTANYL/BUPIVACAINE/NACL BAG 250 ML EPIDURAL SCH (15:01)
--- NOTE | 2018-10-11 19:48 | IPN ---
DATE: 10/11/2018 This is now the sixth postoperative day for Mrs. Fields. She had a bronchoscopy [address] Carr to clear out mucous secretions. She has done well over the past 48 hours. Her pain is being well controlled and her epidural is only at 2. Her vital signs show a maximum temperature (t-max) of 98.2 with a heart rate that ranges between 65 and 84 in a sinus rhythm with premature ventricular contractions (PVCs) and bigemies. Her respiratory rate is 20 to 22 without the use of accessory muscles and she is 95% saturated on 3 liters nasal cannula. Her intake and output the past 24 hours has been recorded as 2019 in and 2015 out for a positivity of 5 mL. She has put 1070 mL from the chest tube. I do not detect an air leak. In the past 12 hours she has only put out 30 mL. She weighs 87.6 kg today compared to 87.4 kg yesterday. PHYSICAL EXAMINATION LUNGS: Her lungs show scattered rhonchi, greater on the left than the right. I still hear some transmitted breath sounds and some bronchophony on the left. Percussion note is full to the diaphragm. CARDIAC EXAM: Without murmurs, clicks, gallops or rubs. I cannot feel her point of maximum impulse (PMI) through her obesity. S1, S2 are normal. ABDOMEN: Soft, nontender. Bowel sounds positive. There is no hepatomegaly that I can appreciate through her obesity. There is no costovertebral angle tenderness. She has had a bowel movement. EXTREMITIES: Show no pretibial edema. No calf tenderness. No differential swelling of the upper extremities. SKIN: Warm, dry and perfused without cyanosis or mottling, including that of the nail beds and knees. NECK: Supple. There is no jugular venous distention. No subcutaneous emphysema. Trachea is midline. MOUTH: Shows her mucous membranes to be pink and moist. Lips and commissures without lesions. There is no thrush. EYES: Show her pupils to be equal and reactive. Extraocular motion intact. Sclerae anicteric. NEUROLOGIC: Shows II through XII intact with gross motor and gross sensation intact. Gait is not tested. PSYCHIATRIC: Shows her to be awake and alert, oriented times three with appropriate mood and affect and conversational. Her white count today is 9.6 with a hemoglobin and hematocrit of 12.3 and 37.5, essentially unchanged from the last few days. Platelet count is 272. Differential shows 60% neutrophils, 20% lymphocytes, 10% monocytes. There are no immature forms and toxic granulations. Electrolytes are normal with a BUN and creatinine of 42 and 1.01. Glucose is 185 with a calcium of 8.6. Her chest x-ray today shows the lung fully expanded to the chest wall. The left lung has nicely reexpanded. She does have a flattened diaphragm on the left. Chest tubes are in good place. I see no overt infiltrates. There is no subcutaneous emphysema. IMPRESSION: 1. Postoperative day #6 status post left upper lobectomy. 2. Moderately differentiated squamous cell carcinoma left upper lobe, stage IA2. 3. Renal insufficiency, resolved. 4. Obesity. 5. Diabetes. 6. Hypertension. 7. Chronic obstructive pulmonary disease (COPD). 8. Hyperlipidemia. 9. Generalized weakness, improved. 10. Mucous plugging of remaining left lower lobe, improved after bronchoscopy and removal of mucous plugs. 11. Bradycardia and premature ventricular contractions (PVCs). PLAN AND DISCUSSION: I will clamp her chest tube today. If her chest x-ray looks good tomorrow, I will remove her chest tube and wean the remaining epidural and remove her Navarro catheter. I have encouraged the nurses to have her walk longer distances around the intensive care unit (ICU) circuit today.
[2018-10-11] MEDS: ATORVASTATIN 20 MG TAB PO SCH (20:18)
[2018-10-12] VITALS: BP 155/70
[2018-10-12] MEDS: LEVALBUTEROL 1.25 MG/0.5 ML CONCENTRATE NEB NEB SCH ×4 (00:53→19:34)
[2018-10-12] MEDS: SODIUM CHLORIDE HYPERTONIC 3% 15ML NEB SOL INH SCH ×6 (00:53→19:34)
[2018-10-12 04:00] VITALS: BP 168/77
[2018-10-12] MEDS: KETOROLAC 30 MG/ML VIAL (J1885) IV SCH (05:02)
[2018-10-12] MEDS: ACETYLCYSTEINE 20% 4 ML VIAL (200MG/ML) INH SCH ×2 (07:59→19:34)
[2018-10-12 08:00] VITALS: BP 133/64
[2018-10-12] MEDS: DOCUSATE SODIUM 100 MG CAP PO SCH ×2 (08:44→20:34)
[2018-10-12] MEDS: MOM 30ML SUSPENSION UDC PO SCH (08:44)
[2018-10-12] MEDS: PANTOPRAZOLE 40MG TAB (PROTONIX) PO SCH (08:44)
[2018-10-12] MEDS: HEPARIN SOD (PORCINE) 5000 UNITS/ML VIAL SC SCH ×2 (08:44→20:35)
[2018-10-12] MEDS: ENALAPRIL MALEATE 10 MG TAB PO SCH ×2 (08:44→20:34)
[2018-10-12] MEDS: SITagliptin 50 MG TAB (JANUVIA) PO SCH (08:45)
[2018-10-12] MEDS: **hydrALAZINE** 10 MG TAB PO SCH ×3 (08:45→20:03)
[2018-10-12] MEDS: BISOPROLOL FUMARATE 5 MG TAB PO SCH ×2 (08:45→20:34)
[2018-10-12] MEDS: LACTIC ACID 12% LOTION 225 GM BTL TOP SCH ×2 (08:46→20:36)
[2018-10-12 08:54] LABS: BASO # 0.1 10^3/uL (0.0-0.2); BASO % 0.8 % (0.0-1.0); EOS # 0.7 10^3/uL (0.0-0.50); EOS % 6.1 % (0.0-3.0); HEMATOCRIT 39.5 % (36.0-47.0); HEMOGLOBIN 12.8 g/dl (12.0-15.5); LYMPH # 2.1 10^3/uL (1.5-4.5); LYMPH % 18.1 % (24.0-44.0); MEAN CORPUSCULAR HEMOGLOBIN 30.5 pg (27.0-33.0); MEAN CORPUSCULAR HGB CONC 32.4 g/dl (32.0-36.5); MEAN CORPUSCULAR VOLUME 94.3 fl (80.0-96.0); MONO % 8.9 % (0.0-5.0); NEUTROPHILS # 7.4 10^3/uL (1.8-7.7); NEUTROPHILS % 64.8 % (36.0-66.0); PLATELET COUNT, AUTOMATED 329 10^3/uL (150-450); RED BLOOD COUNT 4.19 10^6/uL (4.00-5.40); WHITE BLOOD COUNT 11.4 10^3/uL (4.0-10.0)
[2018-10-12 09:03] LABS: CREATININE FOR GFR 1.09 MG/DL (0.55-1.30); GLOMERULAR FILTRATION RATE 53.1 (>45)
--- NOTE | 2018-10-12 09:23 | REP ---
Chest x-ray: Two views. History: Status post left upper lobectomy. Comparison chest x-ray: October 10, 2018. Findings: Two left chest tubes remain in place. EKG electrodes are seen and epidural catheter is noted. There is continued improvement in aeration in the left base and continued decrease in the amount of of pleural thickening on the left. No new infiltrate. Electronically Signed by Jacob Luna MD 10/11/2018 07:46 A
--- NOTE | 2018-10-12 09:38 | REP ---
Chest x-ray: Two views. History: Status post left upper lobectomy. Comparison study: October 11, 2018. Findings: There are two chest tubes on the left again noted. Mild left lateral pleural thickening is seen. The remaining left lung is well-aerated. No infiltrate is seen. Epidural catheter is again seen. The right lung remains clear. Electronically Signed by Jacob Luna MD 10/12/2018 08:01 A
[2018-10-12] MEDS ORDERED: FUROSEMIDE 40 MG/4 ML VIAL (J1940) IV ONE (11:30)
[2018-10-12 12:00] VITALS: BP 162/67
--- NOTE | 2018-10-12 12:17 | IPN ---
DATE: 10/12/2018 This now the 7th postoperative day for Mrs. Fields. I clamped the chest tube yesterday. Her lung is still expanded to the chest wall and not re-accumulating fluid. Her vital signs show a maximum temperature (T-max) of 98.2 with a heart rate that ranges between 72 and 78 in sinus rhythm. Respiratory rate of 16-18 without the use of accessory muscles, who is 93% saturated now on room air. Blood pressures ranging between 155/70 to 168/77. Her intake and output over the past 24 hours is recorded as 1080 in and 1180 out for a negativity of 100 mL. Chest tube has been clamped overnight. Weight today is 85.2 compared to 87.6 kg yesterday. On physical examination, she has coarse rhonchi particularly on the left side but currently on both sides. Percussion note is full to the diaphragm. Sounds like she is starting to have increased secretions. Cardiac exam is without murmurs, clicks, gallops or rubs. I cannot feel her point of maximum impulse (PMI) through her border easily. S1 and S2 are normal. Abdomen is soft and nontender. Bowel sounds are positive. There is no hepatomegaly that I can feel and no costovertebral angle (CVA) tenderness. Extremities show no pretibial edema with no calf tenderness. No differential swelling of the upper extremities. Skin is warm, dry and perfused without cyanosis or mottling including that of the nail beds and knees. Neck is supple. There is no jugular venous distention. No subcutaneous emphysema. Trachea is midline. Mouth shows her mucous membranes to be pink and moist. Lips and commissures are without lesions. There is no thrush. Eyes show her pupils to be equal and reactive. Extraocular movements intact. Sclerae nonicteric. Neurologic shows II-XII intact along with gross motor and gross sensation intact. Gait is not tested. Psychiatric showed her to be awake, alert and oriented times three with appropriate and affect and conversational. Her white count today is 11.4 up from 9.6 yesterday. Hemoglobin and hematocrit 12.8 and 39.5 slightly increased from 12.3 and 37.5 yesterday. Platelet count is 329 and the differential shows 64% neutrophils, 18% lymphocytes, 80% monocytes. There are no immature forms or toxic granulations. Electrolytes are normal today with BUN and creatinine of 38 and 1.09, calcium 9.0 and glucose 173. Her chest x-ray shows her lungs fully expanded to the chest wall. Chest tubes are in good place. There is no pneumothorax. There is still a bit of white haze in the lower portion of the left hemithorax, which is essentially unchanged from yesterday. IMPRESSION: 1. Postoperative day #7 status post left upper lobectomy. 2. Stage I A2, moderately differentiated squamous cell carcinoma. 3. Renal fissure resolved. 4. Obesity. 5. Diabetes. 6. Hypertension. 7. Chronic obstructive pulmonary disease (COPD) 8. Hyperlipidemia. 9. Generalized weakness, improved. 10. Mucous plugging of the remaining left lower lobe, improved after bronchoscopy and removal of the mucous plugs. 11. Pericardium preventricular contractions (PVCs). 12. Possible moving seroma. PLAN/DISCUSSION: I will remove her chest tubes today. I will also diurese her. I will transfer her to progressive care unit (PCU). We will discontinue the epidural and just continue her Navarro catheter. I would like for her to go home tomorrow but I am going to have my doubts because of her rehabilitation status and need to ambulate more. I will carefully watch her wound.
[2018-10-12 13:00] VITALS: BP 120/60
[2018-10-12 19:57] VITALS: BP 138/60
[2018-10-12] MEDS: ATORVASTATIN 20 MG TAB PO SCH (20:34)
[2018-10-13] VITALS: BP 158/60
[2018-10-13] MEDS: SODIUM CHLORIDE HYPERTONIC 3% 15ML NEB SOL INH SCH ×4 (02:34→12:00)
[2018-10-13] MEDS: LEVALBUTEROL 1.25 MG/0.5 ML CONCENTRATE NEB NEB SCH ×3 (02:34→13:07)
[2018-10-13 04:00] VITALS: BP 150/60
[2018-10-13 05:23] LABS: BASO # 0.1 10^3/uL (0.0-0.2); BASO % 0.8 % (0.0-1.0); EOS # 0.6 10^3/uL (0.0-0.50); EOS % 5.1 % (0.0-3.0); HEMATOCRIT 36.8 % (36.0-47.0); HEMOGLOBIN 12.2 g/dl (12.0-15.5); LYMPH # 1.7 10^3/uL (1.5-4.5); LYMPH % 15.9 % (24.0-44.0); MEAN CORPUSCULAR HGB CONC 33.2 g/dl (32.0-36.5); MEAN CORPUSCULAR VOLUME 93.4 fl (80.0-96.0); MONO % 9.2 % (0.0-5.0); NEUTROPHILS # 7.4 10^3/uL (1.8-7.7); NEUTROPHILS % 67.9 % (36.0-66.0); PLATELET COUNT, AUTOMATED 332 10^3/uL (150-450); RED BLOOD COUNT 3.94 10^6/uL (4.00-5.40); WHITE BLOOD COUNT 10.9 10^3/uL (4.0-10.0)
[2018-10-13 05:39] LABS: CALCIUM LEVEL 8.6 MG/DL (8.8-10.2); CREATININE FOR GFR 1.06 MG/DL (0.55-1.30); GLOMERULAR FILTRATION RATE 54.9 (>45); POTASSIUM SERUM 4.5 MEQ/L (3.5-5.1)
[2018-10-13] MEDS: ACETYLCYSTEINE 20% 4 ML VIAL (200MG/ML) INH SCH (08:00)
[2018-10-13 08:05] VITALS: BP 158/80
[2018-10-13] MEDS: SITagliptin 50 MG TAB (JANUVIA) PO SCH (08:31)
[2018-10-13] MEDS: BISOPROLOL FUMARATE 5 MG TAB PO SCH (08:31)
[2018-10-13] MEDS: **hydrALAZINE** 10 MG TAB PO SCH ×2 (08:32→08:35)
[2018-10-13] MEDS: ENALAPRIL MALEATE 10 MG TAB PO SCH (08:32)
[2018-10-13] MEDS: HEPARIN SOD (PORCINE) 5000 UNITS/ML VIAL SC SCH (08:32)
[2018-10-13] MEDS: PANTOPRAZOLE 40MG TAB (PROTONIX) PO SCH (08:32)
[2018-10-13] MEDS: MOM 30ML SUSPENSION UDC PO SCH (08:33)
[2018-10-13] MEDS: DOCUSATE SODIUM 100 MG CAP PO SCH (08:33)
[2018-10-13 08:35] VITALS: BP 158/80
[2018-10-13] MEDS: LACTIC ACID 12% LOTION 225 GM BTL TOP SCH (08:39)
--- NOTE | 2018-10-13 09:33 | REP ---
Chest x-ray: Two views. History: Status post left upper lobectomy. Comparison study: October 12, 2018. Findings: In the interval since yesterday's radiograph, the to left pleural drainage catheters have been withdrawn. EKG electrodes are seen. There is hazy pleural opacity at the left base unchanged. No new infiltrate is seen. Right lung remains clear. Electronically Signed by Jacob Luna MD 10/13/2018 09:24 A
--- NOTE | 2018-10-13 12:22 | DSES ---
DATE OF ADMISSION: 10/05/2018 DATE OF DISCHARGE: 10/13/2018 DISCHARGE DIAGNOSES: 1. Postoperative day #8 status post left upper lobectomy. 2. Stage I A2 moderately differentiated squamous cell carcinoma. 3. Renal failure, resolved. 4. Obesity. 5. Diabetes. 6. Hypertension. 7. Chronic obstructive pulmonary disease. 8. Hyperlipidemia. 9. Mucous plugging of remaining left lower lobe, resolved. 10. PVCs. 11. Wound seroma. HOSPITAL COURSE: The patient is a 68-year-old who in March underwent a CT scan of her chest for diarrhea and was found to have a left upper lobe lesion. She was not complaining of shortness of breath, nor did she complain of fever, chills or sweats. She had a cough, but no sputum production. She was eventually found to have squamous cell carcinoma and was referred for resection. Her FEV1 was 1.75 which was 78% of predicted with a diffusion capacity which was 90% of predicted. She showed normal left ventricular function on cardiac evaluation. She was therefore taken to the operating room where she underwent a left upper lobectomy. She had a benign postoperative course until postoperative day #4 where she collapsed her remaining left lower lobe secondary to mucus plugging which was cleared by Dr. Carr with bronchoscopy. She had previously been placed on aggressive lung expansion therapy because of her thick secretions. After her bronchoscopy, she did well. Her air leak stopped and her fluid diminished to an extent that we could remove her chest tubes on the 6th postoperative day. She did develop a wound seroma which emanated some serous drainage from the wound. This was more prevalent posteriorly. She is being discharged today on her home medications which include aspirin 325 mg daily, atorvastatin 20 mg at bedtime, Zebeta 5 mg twice a day, enalapril 20 mg twice a day, Drisdol 50,000 units weekly, Combivent inhaler one puff four times a day as needed shortness of breath, Januvia 100 mg daily. I will see her back in the office in one week in postoperative followup with a chest x-ray. As she has Stage I A2 cancer, she will not need adjuvant chemotherapy. edited: 10/14/2018 0723 tkf KATYA
== END 2018-10-13 13:40 | disposition home or self-care (01) | DRG 164 ==
LOC: EDSTATUS 09-29 07:30 → M OR 10-05 05:35 → M ICU 10-05 15:10 → M PCU 10-12 12:49
PROVIDERS: ADMIT Thoracic Surgery (Cardiothoracic Vascular Surgery); ATTEND Thoracic Surgery (Cardiothoracic Vascular Surgery)
PROC: 07B70ZX Excision of Thorax Lymphatic, Open Approach, Diagnostic (ICD-10-PCS; 2018-10-05)
PROC: 0BTG0ZZ Resection of Left Upper Lung Lobe, Open Approach (ICD-10-PCS; principal; 2018-10-05 07:30)
PROC: 0B9J8ZZ Drainage of Left Lower Lung Lobe, Via Natural or Artificial Opening Endoscopic (ICD-10-PCS; 2018-10-09)
DX: C34.12 Malignant neoplasm of upper lobe, left bronchus or lung (principal); J95.862 Postprocedural seroma of a respiratory system organ or structure following a respiratory system procedure; E11.9 Type 2 diabetes mellitus without complications; E78.5 Hyperlipidemia, unspecified; E66.9 Obesity, unspecified; J44.9 Chronic obstructive pulmonary disease, unspecified; I10 Essential (primary) hypertension; Z87.891 Personal history of nicotine dependence; M10.9 Gout, unspecified

== ENCOUNTER → 2018-10-22 | Outpatient (CLI) | payer MEDICARE ==
[~2018-10-22] MED LIST changes: +BISO10TA13 PO
--- NOTE | 2018-10-22 09:59 | REP ---
Chest two views HISTORY: Left lung neoplasm Comparison: 10/13/2018 There is loss of volume in the left hemithorax. Parenchymal density is present in the left lower lobe consistent with atelectasis or infiltrate. There is blunting of the left costophrenic angle due to pleural thickening or a small pleural effusion. Two small hydro pneumothoraces are present in the left upper hemithorax. The right lung is clear. The heart is normal in size. The pulmonary vasculature is normal in appearance. The bony structure is intact. IMPRESSION: 1. Left lower lobe atelectasis or infiltrate . 2. There is blunting of the left costophrenic angle due to pleural thickening or a small pleural effusion. 3. There are two small hydropneumothoraces in the left upper hemithorax. Electronically Signed by Rob Mckeon MD 10/22/2018 09:50 A
== END ==
LOC: M SMT 08:04
PROVIDERS: ATTEND Thoracic Surgery (Cardiothoracic Vascular Surgery)
DX: C34.12 Malignant neoplasm of upper lobe, left bronchus or lung (principal)

== ENCOUNTER → 2018-10-22 | Outpatient (CLI) | payer MEDICARE | LOC: M SMT 07:57 | PROVIDERS: ATTEND Thoracic Surgery (Cardiothoracic Vascular Surgery) | DX: Z53.9 Procedure and treatment not carried out, unspecified reason (principal); C34.12 Malignant neoplasm of upper lobe, left bronchus or lung ==

== ENCOUNTER → 2018-11-26 | Outpatient (CLI) | payer MEDICARE ==
--- NOTE | 2018-11-26 10:01 | REP ---
CHEST X-RAY: Two views. HISTORY: Aftercare following surgery. COMPARISON CHEST X-RAY: October 22, 2018. FINDINGS: The patient is status post left thoracotomy and partial pneumonectomy. The lungs are otherwise well inflated and free of infiltrate. Pleural angles are sharp. Cardiomediastinal subtle silhouette and contours are unchanged. There is a dextroconvex thoracic curvature unchanged. No significant bony abnormality is seen. IMPRESSION: Post thoracotomy partial pneumonectomy changes on the left. No acute abnormality. Electronically Signed by Jacob Luna MD 11/26/2018 02:34 P
== END ==
LOC: M SMT 08:01
PROVIDERS: ATTEND Thoracic Surgery (Cardiothoracic Vascular Surgery)
DX: Z48.3 Aftercare following surgery for neoplasm (principal)

== ENCOUNTER → 2018-11-27 | Outpatient (CLI) | payer MEDICARE ==
--- NOTE | 2018-11-27 15:45 | REPMRS ---
Patient History The patient states she has not had a clinical breast exam in over a year. No known family history of cancer. Lung Cancer surgery 2019. 3D TOMOSYNTHESIS WAS PERFORMED. Digital Mammo Diagnostic Bilateral: November 27, 2018 - Exam #: [id number] Bilateral CC and MLO view(s) were taken. Technologist: Shannon Ozuna Technologist FINDINGS: There are scattered fibroglandular densities. There is no evidence of cancer on this mammogram. Assessment: BI-RADS/ACR category 2 mammogram. Benign Findings. Recommendation Routine screening mammogram of both breasts in 1 year (for women over age 40). This mammogram was interpreted with the aid of an FDA-approved computer-aided dectection system. Electronically Signed By: Rafal Sainz MD 11/27/18 0936
== END ==
LOC: M RAD 08:48
PROVIDERS: ATTEND Family Medicine
DX: N64.4 Mastodynia (principal); Z85.118 Personal history of other malignant neoplasm of bronchus and lung
CPT/HCPCS: 77066; G0279

== ENCOUNTER → 2018-12-24 | Outpatient (REF) | payer MEDICARE ==
[~2018-12-24] MED LIST changes: +ASPI-524 PO; -ASPI1TAB20 PO
[2018-12-24 12:52] LABS: BASO # 0.1 10^3/uL (0.0-0.2); BASO % 0.8 % (0.0-1.0); EOS # 0.2 10^3/uL (0.0-0.50); EOS % 1.9 % (0.0-3.0); HEMATOCRIT 46.5 % (36.0-47.0); HEMOGLOBIN 15.3 g/dl (12.0-15.5); LYMPH # 2.2 10^3/uL (1.5-4.5); LYMPH % 21.3 % (24.0-44.0); MEAN CORPUSCULAR HEMOGLOBIN 31.3 pg (27.0-33.0); MEAN CORPUSCULAR HGB CONC 32.9 g/dl (32.0-36.5); MEAN CORPUSCULAR VOLUME 95.1 fl (80.0-96.0); MONO # 0.9 10^3/uL (0.0-0.8); MONO % 8.7 % (0.0-5.0); NEUTROPHILS # 6.8 10^3/uL (1.8-7.7); NEUTROPHILS % 66.7 % (36.0-66.0); PLATELET COUNT, AUTOMATED 252 10^3/uL (150-450); RED BLOOD COUNT 4.89 10^6/uL (4.00-5.40); WHITE BLOOD COUNT 10.2 10^3/uL (4.0-10.0)
[2018-12-24 12:54] LABS: ALBUMIN 3.5 GM/DL (3.2-5.2); BILIRUBIN,TOTAL 0.4 MG/DL (0.2-1.0); CALCIUM LEVEL 9.5 MG/DL (8.8-10.2); CREATININE FOR GFR 1.16 MG/DL (0.55-1.30); GLOMERULAR FILTRATION RATE 49.5 (>45); POTASSIUM SERUM 4.3 MEQ/L (3.5-5.1); TOTAL PROTEIN 7.3 GM/DL (6.4-8.2)
[2018-12-24 13:14] LABS: HEMOGLOBIN A1c 7.6 %
== END ==
LOC: M SFHCPLAZ 10:01
PROVIDERS: ATTEND Family Medicine
DX: I10 Essential (primary) hypertension (principal); E11.8 Type 2 diabetes mellitus with unspecified complications
CPT/HCPCS: 36415; 80053; 83036; 85025; 85046; G0463

== ENCOUNTER 2019-02-09 20:29 | Emergency (ER) | payer MEDICARE ==
[~2019-02-09] VITALS: Ht 167.6 cm; Wt 87.8 kg
[~2019-02-09 20:29] MED LIST changes: -ASPI-524 PO; +ASPI325T57 PO; -BISO5TAB5 PO; +BISO5TAB9 PO
[2019-02-09 22:33] LABS: BASO # 0.1 10^3/uL (0.0-0.2); BASO % 0.7 % (0.0-1.0); EOS # 0.2 10^3/uL (0.0-0.50); HEMATOCRIT 42.6 % (36.0-47.0); HEMOGLOBIN 14.4 g/dl (12.0-15.5); LYMPH # 2.7 10^3/uL (1.5-4.5); LYMPH % 27.6 % (24.0-44.0); MEAN CORPUSCULAR HEMOGLOBIN 31.1 pg (27.0-33.0); MEAN CORPUSCULAR HGB CONC 33.8 g/dl (32.0-36.5); MONO # 0.9 10^3/uL (0.0-0.8); MONO % 8.6 % (0.0-5.0); NEUTROPHILS % 60.5 % (36.0-66.0); PLATELET COUNT, AUTOMATED 242 10^3/uL (150-450); RED BLOOD COUNT 4.63 10^6/uL (4.00-5.40); WHITE BLOOD COUNT 9.9 10^3/uL (4.0-10.0)
[2019-02-09] MEDS ORDERED: AMLO5TAB6 PO (22:37)
[2019-02-09] MEDS ORDERED: OMEP-221 PO (22:40)
[2019-02-09 22:51] LABS: CALCIUM LEVEL 9.3 MG/DL (8.8-10.2); CREATININE FOR GFR 1.04 MG/DL (0.55-1.30); GLOMERULAR FILTRATION RATE 56.1 (>45); POTASSIUM SERUM 3.6 MEQ/L (3.5-5.1)
[2019-02-09 23:00] VITALS: BP 155/90
[2019-02-09] MEDS ORDERED: CEPHALEXIN 500 MG CAP PO ONE (23:00)
[2019-02-09] MEDS ORDERED: KEFL500C17 PO (23:13)
== END 2019-02-09 23:43 | disposition home or self-care (01) ==
LOC: M ED 20:29
DX: S91.301A Unspecified open wound, right foot, initial encounter (principal); X58.XXXA Exposure to other specified factors, initial encounter; Y92.89 Other specified places as the place of occurrence of the external cause; I10 Essential (primary) hypertension; E11.9 Type 2 diabetes mellitus without complications; J44.9 Chronic obstructive pulmonary disease, unspecified; Z79.899 Other long term (current) drug therapy; Z79.84 Long term (current) use of oral hypoglycemic drugs; Z79.82 Long term (current) use of aspirin; Z88.1 Allergy status to other antibiotic agents; Z88.2 Allergy status to sulfonamides; F17.210 Nicotine dependence, cigarettes, uncomplicated

== ENCOUNTER → 2019-07-26 | Outpatient (REF) | payer MEDICARE ==
[~2019-07-26] MED LIST changes: +AMLO5TAB6 PO; +BISO5TAB14 PO; -BISO5TAB9 PO; +KEFL500C17 PO; +OMEP-221 PO; -OMEP40CA2 PO; +OMEP40CA97 PO
[2019-07-26 19:06] LABS: BASO # 0.1 10^3/uL (0.0-0.2); BASO % 0.8 % (0.0-1.0); EOS # 0.2 10^3/uL (0.0-0.5); EOS % 1.8 % (0.0-3.0); HEMATOCRIT 48.2 % (36.0-47.0); HEMOGLOBIN 15.5 g/dl (12.0-15.5); LYMPH # 2.5 10^3/uL (1.5-5.0); LYMPH % 21.5 % (24.0-44.0); MEAN CORPUSCULAR HEMOGLOBIN 30.3 pg (27.0-33.0); MEAN CORPUSCULAR HGB CONC 32.2 g/dl (32.0-36.5); MEAN CORPUSCULAR VOLUME 94.1 fl (80.0-96.0); MONO # 0.9 10^3/uL (0.0-0.8); MONO % 7.9 % (0.0-5.0); NEUTROPHILS # 7.7 10^3/uL (1.5-8.5); NEUTROPHILS % 67.2 % (36.0-66.0); PLATELET COUNT, AUTOMATED 264 10^3/uL (150-450); RED BLOOD COUNT 5.12 10^6/uL (4.00-5.40); WHITE BLOOD COUNT 11.4 10^3/uL (4.0-10.0)
[2019-07-26 19:14] LABS: ALBUMIN 3.5 GM/DL (3.2-5.2); BILIRUBIN,TOTAL 0.5 MG/DL (0.2-1.0); CALCIUM LEVEL 9.1 MG/DL (8.8-10.2); CHOLESTEROL RISK RATIO 6.769 (<5); CREATININE FOR GFR 1.07 MG/DL (0.55-1.30); GLOMERULAR FILTRATION RATE 54.3 (>45); POTASSIUM SERUM 3.5 MEQ/L (3.5-5.1); TOTAL PROTEIN 7.5 GM/DL (6.4-8.2)
[2019-07-26 19:19] LABS: HEMOGLOBIN A1c 7.9 %
[2019-07-26 19:20] LABS: PTH INTACT 44.8 PG/ML (18.5-88.0)
[2019-07-26 19:59] LABS: CREATININE, URINE 87.4 MG/DL; MAU/CREAT RATIO 697.9 MCG/MG (0.0-30.0)
== END ==
LOC: M SFHCPLAZ 13:46
PROVIDERS: ATTEND Physician Assistant Medical
DX: E11.8 Type 2 diabetes mellitus with unspecified complications (principal); E78.2 Mixed hyperlipidemia; I50.30 Unspecified diastolic (congestive) heart failure; E55.9 Vitamin D deficiency, unspecified; K21.9 Gastro-esophageal reflux disease without esophagitis
CPT/HCPCS: 36415; 80053; 80061; 82043; 82306; 83036; 83880; 83970; 85025; G0463

== ENCOUNTER → 2019-11-11 | Outpatient (REF) | payer MEDICARE ==
[~2019-11-11] MED LIST changes: +AMLO1TAB24 PO; -AMLO5TAB6 PO; -ENAL20TA PO; +ENAL20TA11 PO
== END ==
LOC: M LAB REF 17:18
PROVIDERS: ATTEND Dermatology
DX: C44.629 Squamous cell carcinoma of skin of left upper limb, including shoulder (principal); C44.519 Basal cell carcinoma of skin of other part of trunk; C44.602 Unspecified malignant neoplasm of skin of right upper limb, including shoulder
CPT/HCPCS: 11102; 11103; 88305; G0463

== ENCOUNTER → 2019-11-17 | Outpatient (REF) | payer MEDICARE ==
[~2019-11-17] MED LIST changes: -AMLO1TAB24 PO; +AMLO5TAB6 PO; +ENAL20TA PO; -ENAL20TA11 PO
== END ==
LOC: M LAB REF 17:52
PROVIDERS: ATTEND Dermatology
DX: D04.62 Carcinoma in situ of skin of left upper limb, including shoulder (principal); L90.5 Scar conditions and fibrosis of skin

== ENCOUNTER → 2019-12-01 | Outpatient (REF) | payer MEDICARE | LOC: M LAB REF 08:26 | PROVIDERS: ATTEND Dermatology | DX: L90.5 Scar conditions and fibrosis of skin (principal) ==

== ENCOUNTER → 2019-12-09 | Outpatient (REF) | payer MEDICARE ==
[~2019-12-09] MED LIST changes: +AMLO1TAB24 PO; -AMLO5TAB6 PO; -ENAL20TA PO; +ENAL20TA11 PO
[2019-12-09 17:11] LABS: BASO # 0.1 10^3/uL (0.0-0.2); BASO % 0.7 % (0.0-1.0); EOS # 0.2 10^3/uL (0.0-0.5); EOS % 1.9 % (0.0-3.0); HEMOGLOBIN 14.6 g/dl (12.0-15.5); LYMPH # 2.5 10^3/uL (1.5-5.0); LYMPH % 22.9 % (24.0-44.0); MEAN CORPUSCULAR HEMOGLOBIN 31.2 pg (27.0-33.0); MEAN CORPUSCULAR VOLUME 91.9 fl (80.0-96.0); MONO # 0.9 10^3/uL (0.0-0.8); MONO % 8.7 % (0.0-5.0); NEUTROPHILS # 7.1 10^3/uL (1.5-8.5); NEUTROPHILS % 65.2 % (36.0-66.0); PLATELET COUNT, AUTOMATED 261 10^3/uL (150-450); RED BLOOD COUNT 4.68 10^6/uL (4.00-5.40); WHITE BLOOD COUNT 10.9 10^3/uL (4.0-10.0)
[2019-12-09 17:34] LABS: ALBUMIN 3.4 GM/DL (3.2-5.2); BILIRUBIN,TOTAL 0.4 MG/DL (0.2-1.0); CALCIUM LEVEL 9.2 MG/DL (8.8-10.2); CHOLESTEROL RISK RATIO 4.371 (<5); CREATININE FOR GFR 1.18 MG/DL (0.55-1.30); FREE T4 1.19 NG/DL (0.76-1.46); GLOMERULAR FILTRATION RATE 48.3 (>45); THYROID STIMULATING HORMONE 0.919 uIU/ML (0.358-3.740); TOTAL PROTEIN 7.3 GM/DL (6.4-8.2)
== END ==
LOC: M SFHCPLAZ 15:00
PROVIDERS: ATTEND Family Medicine
DX: E78.2 Mixed hyperlipidemia (principal); E11.8 Type 2 diabetes mellitus with unspecified complications; I50.30 Unspecified diastolic (congestive) heart failure
CPT/HCPCS: 36415; 80053; 80061; 82607; 83036; 83880; 84439; 84443; 85025; G0463

== ENCOUNTER → 2019-12-24 | Outpatient (CLI) | payer MEDICARE ==
[~2019-12-24] MED LIST changes: -AMLO1TAB24 PO; +AMLO5TAB6 PO; +ENAL20TA PO; -ENAL20TA11 PO
--- NOTE | 2019-12-24 14:52 | REPMRS ---
Patient History The patient states she has not had a clinical breast exam in over a year. No known family history of cancer. 3D TOMOSYNTHESIS WAS PERFORMED. The [facility] lifetime risk for breast cancer is 4.9%. LUCAHetal YUNG A. Digital Woman Screen Mammo: December 24, 2019 - Exam #: [id number] Bilateral CC and MLO view(s) were taken. Technologist: Shannon Ozuna, Technologist Prior study comparison: November 27, 2018, digital mammo diagnostic bilateral, performed at [facility]. FINDINGS: There are scattered fibroglandular densities. There has been no change in the appearance of the mammogram from the prior studies. There is a mild amount of residual fibroglandular tissue which is fairly symmetric. There is no interval development of dominant mass, architectural distortion, or clustered microcalcification suggestive of malignancy. Assessment: BI-RADS/ACR category 1 mammogram. Negative Mammogram. Recommendation Routine screening mammogram in 1 year (for women over age 40). This mammogram was interpreted with the aid of an FDA-approved computer-aided dectection system. Electronically Signed By: Rafal Sainz MD 12/24/19 0767
== END ==
LOC: M WHC 13:34
PROVIDERS: ATTEND Family Medicine
DX: Z12.31 Encounter for screening mammogram for malignant neoplasm of breast (principal)

== ENCOUNTER → 2019-12-29 | Outpatient (CLI) | payer MEDICARE ==
--- NOTE | 2019-12-30 08:16 | REP ---
Clinical: Follow-up thyroid nodule. Technique: Real time monahan scale and color evaluation using linear high frequency and curved array transducers. Comparison: 05/14/2018. Findings: The thyroid gland is diffusely heterogeneous with asymmetrically enlarged right thyroid lobe measuring 6.7 x 2.8 x 2.3 cm including 3.5 x 3.2 x 2.2 cm solid mid pole nodule (previously measuring 3.7 x 2.2 x 2.8 cm) and 1.1 x 1.2 x 0.8 cm solid upper pole nodule. The left lobe measures 3.6 x 1.6 x 1.7 cm without discrete nodule identified. Impression: 1. Asymmetric size to the thyroid gland similar to prior examination. 2. Large heterogeneous nonspecific indeterminate nodule in the right lobe which may be minimally enlarged as compared to prior examination. Previously noted left nodule not identifiable on current exam.
== END ==
LOC: M PLAIMG 14:21
PROVIDERS: ATTEND Family Medicine
DX: E04.1 Nontoxic single thyroid nodule (principal)

== ENCOUNTER → 2020-01-06 | Outpatient (CLI) | payer MEDICARE ==
[~2020-01-06] MED LIST changes: +AMLO1TAB24 PO; -AMLO5TAB6 PO; -ENAL20TA PO; +ENAL20TA11 PO
--- NOTE | 2020-01-06 11:17 | REP ---
REASON FOR EXAM: Patient has a history of squamous cell carcinoma of the left lung status post left lower lobectomy. The prior examination of 09/22/2018 is the latest prior for comparison with other older examinations also reviewed. As per the NCCN guidelines, standard followup chest CT should be performed yearly for the next 5 years for recurrent surveillance. Low dose screening CT is inadequate at this time. As per the protocol, only lung window images were sent to the read station for interpretation. Postoperative changes are seen in the hemithorax. Curvilinear densities are seen in the left lower lobe likely postoperative fibrotic change. No new abnormal nodules have developed. IMPRESSION: No abnormal nodules, however, standard chest CT is recommended for continues surveillance at this time as described above. Electronically Signed by Chad Engle DO 01/06/2020 04:55 P
== END ==
LOC: M RAD 08:29
PROVIDERS: ATTEND Family Medicine
DX: Z85.118 Personal history of other malignant neoplasm of bronchus and lung (principal); Z90.2 Acquired absence of lung [part of]; Z87.891 Personal history of nicotine dependence

== ENCOUNTER → 2020-04-18 | Outpatient (REF) | payer MEDICARE | LOC: M LAB REF 17:24 | PROVIDERS: ATTEND Dermatology | DX: C44.622 Squamous cell carcinoma of skin of right upper limb, including shoulder (principal) ==

== ENCOUNTER → 2020-05-19 | Outpatient (REF) | payer MEDICARE | LOC: M LAB REF 13:39 | PROVIDERS: ATTEND Dermatology | DX: D04.61 Carcinoma in situ of skin of right upper limb, including shoulder (principal); L90.5 Scar conditions and fibrosis of skin ==

== ENCOUNTER → 2020-07-13 | Outpatient (REF) | payer MEDICARE ==
[2020-07-13 15:53] LABS: BASO # 0.1 10^3/uL (0.0-0.2); BASO % 0.7 % (0.0-1.0); EOS # 0.1 10^3/uL (0.0-0.5); EOS % 1.4 % (0.0-3.0); HEMATOCRIT 46.5 % (36.0-47.0); HEMOGLOBIN 15.1 g/dl (12.0-15.5); LYMPH % 29.5 % (24.0-44.0); MEAN CORPUSCULAR HEMOGLOBIN 29.8 pg (27.0-33.0); MEAN CORPUSCULAR HGB CONC 32.5 g/dl (32.0-36.5); MEAN CORPUSCULAR VOLUME 91.9 fl (80.0-96.0); MONO # 0.8 10^3/uL (0.0-0.8); MONO % 7.8 % (0.0-5.0); PLATELET COUNT, AUTOMATED 275 10^3/uL (150-450); RED BLOOD COUNT 5.06 10^6/uL (4.00-5.40)
[2020-07-13 16:14] LABS: ALBUMIN 3.6 GM/DL (3.2-5.2); BILIRUBIN,TOTAL 0.5 MG/DL (0.2-1.0); CHOLESTEROL RISK RATIO 5.342 (<5); CREATININE FOR GFR 1.03 MG/DL (0.55-1.30); GLOMERULAR FILTRATION RATE 56.6 (>45); POTASSIUM SERUM 3.8 MEQ/L (3.5-5.1); TOTAL PROTEIN 7.7 GM/DL (6.4-8.2)
[2020-07-13 16:18] LABS: TOTAL 25(OH) VITAMIN D 60.8 NG/ML (30.0-100.0)
[2020-07-13 17:17] LABS: HEMOGLOBIN A1c 9.2 %
== END ==
LOC: M SFHCPLAZ 13:27
PROVIDERS: ATTEND Family Medicine
DX: E11.8 Type 2 diabetes mellitus with unspecified complications (principal); E55.9 Vitamin D deficiency, unspecified; N18.2 Chronic kidney disease, stage 2 (mild); I50.30 Unspecified diastolic (congestive) heart failure
CPT/HCPCS: 36415; 80053; 80061; 82306; 82728; 83036; 83880; 83970; 85025; 95250; G0463

== ENCOUNTER → 2020-12-04 | Outpatient (REF) | payer MEDICARE ==
[2020-12-04 19:46] LABS: ALBUMIN 3.4 GM/DL (3.2-5.2); BILIRUBIN,TOTAL 0.2 MG/DL (0.2-1.0); CALCIUM LEVEL 8.9 MG/DL (8.8-10.2); CHOLESTEROL RISK RATIO 4.666 (<5); CREATININE FOR GFR 1.24 MG/DL (0.55-1.30); FREE T4 0.94 NG/DL (0.76-1.46); GLOMERULAR FILTRATION RATE 45.5 (>39); POTASSIUM SERUM 3.9 MEQ/L (3.5-5.1); THYROID STIMULATING HORMONE 1.46 uIU/ML (0.358-3.740); TOTAL PROTEIN 7.5 GM/DL (6.4-8.2)
[2020-12-04 19:47] LABS: TOTAL 25(OH) VITAMIN D 41.7 NG/ML (30.0-100.0)
[2020-12-04 19:48] LABS: PTH INTACT 42.8 PG/ML (18.5-88.0)
[2020-12-04 20:16] LABS: HEMOGLOBIN A1c 8.5 %
== END ==
LOC: M SFHCPLAZ 15:22
PROVIDERS: ATTEND Nurse Practitioner Family
DX: E11.8 Type 2 diabetes mellitus with unspecified complications (principal); E78.2 Mixed hyperlipidemia; E55.9 Vitamin D deficiency, unspecified; E04.1 Nontoxic single thyroid nodule

== ENCOUNTER → 2021-01-15 | Outpatient (CLI) | payer MEDICARE ==
[~2021-01-15] MED LIST changes: +OMEP40CA4 PO; -OMEP40CA97 PO
--- NOTE | 2021-01-15 15:19 | REP ---
INDICATION: THYROID NODULE. COMPARISON: 12/29/2019. TECHNIQUE: Real-time sonographic evaluation of thyroid performed. FINDINGS: Right lobe measures 5.9 x 2.7 x 2.5 cm and left lobe 3.7 x 1.6 x 1.4 cm. Echotexture is diffusely heterogeneous. A dominant nodule in the right lower pole measures 3.5 x 2.8 x 2.5 cm and appears unchanged. Ill-defined nodule in the right upper pole appears unchanged 1.7 x 1.4 x 1.5 cm. A heterogeneous solid nodule in the mid left lobe measures 4 mm in maximum diameter and another in the left lower pole measures 5 mm in maximum diameter. IMPRESSION: Stable exam. <Electronically signed by Rafal Sainz > 01/15/21 [id number]
== END ==
LOC: M RAD 13:03
PROVIDERS: ATTEND Nurse Practitioner Family
DX: E04.1 Nontoxic single thyroid nodule (principal)

== ENCOUNTER → 2021-05-16 | Outpatient (CLI) | payer MEDICARE ==
--- NOTE | 2021-05-16 11:35 | REP ---
INDICATION: LUNG CA. DIAGNOSED 2018. PATIENT HAS A HISTORY OF SQUAMOUS CELL CARCINOMA OF THE LEFT LUNG STATUS POST LEFT LOWER LOBECTOMY COMPARISON: Multiple the latest 01/06/2020 also low-dose screening CT of the lungs TECHNIQUE: Axial noncontrast images from the thoracic inlet to the upper abdomen using low-dose lung screening technique (LDCT). As per the protocol only lung window images were sent to the read station for interpretation. FINDINGS: There are stable appearing postoperative changes left lung and left hilum. There are stable left lung curvilinear densities. Respiratory motion artifact obscures the fine detail necessary to diagnose 4 mm size nodules and smaller in the lung bases. No definite new abnormal nodules, masses, or opacities have developed. Grossly, the mediastinum and pulmonary jannet are unchanged. There is a soft tissue density in the dependent portion of the trachea which represents a change from the prior exam possibly representing mucous. Grossly, the imaged upper abdomen and imaged osseous structures are unchanged. IMPRESSION: 1. As per the NCCN guidelines, standard chest CT follow-up should be performed rather than low-dose screening lung CT for a period of 5 years after the initial diagnosis of lung cancer for proper recurrent surveillance. 2. Likely mucus in the dependent portion of the trachea, as described above. Consider standard contrast-enhanced repeat chest CT at this time. 3. No new abnormal nodules, masses, or opacities in the lung perkins with limitations as described above. <Electronically signed by Chad Engle > 05/16/21 [id number]
== END ==
LOC: M RAD 09:32
PROVIDERS: ATTEND Family Medicine
DX: C34.92 Malignant neoplasm of unspecified part of left bronchus or lung (principal)

== ENCOUNTER → 2021-09-24 | Outpatient (CLI) | payer MEDICARE ==
[~2021-09-24] MED LIST changes: +BUPR-71 PO; -BUPR150T5 PO; -OMEP-221 PO; +OMEP40CA5 PO
[2021-09-24 15:32] LABS: BASO # 0.1 10^3/uL (0.0-0.2); BASO % 0.7 % (0.0-1.0); EOS # 0.1 10^3/uL (0.0-0.5); EOS % 1.2 % (0.0-3.0); HEMATOCRIT 43.2 % (36.0-47.0); HEMOGLOBIN 14.8 g/dl (12.0-15.5); LYMPH # 2.5 10^3/uL (1.5-5.0); LYMPH % 29.1 % (24.0-44.0); MEAN CORPUSCULAR HEMOGLOBIN 31.4 pg (27.0-33.0); MEAN CORPUSCULAR HGB CONC 34.3 g/dl (32.0-36.5); MEAN CORPUSCULAR VOLUME 91.5 fl (80.0-96.0); MONO # 0.7 10^3/uL (0.0-0.8); MONO % 8.4 % (2.0-8.0); NEUTROPHILS # 5.1 10^3/uL (1.5-8.5); NEUTROPHILS % 60.2 % (36.0-66.0); PLATELET COUNT, AUTOMATED 230 10^3/uL (150-450); RED BLOOD COUNT 4.72 10^6/uL (4.00-5.40); WHITE BLOOD COUNT 8.5 10^3/uL (4.0-10.0)
[2021-09-24 15:38] LABS: HEMOGLOBIN A1c 10.8 %
[2021-09-24 15:49] LABS: ALBUMIN 3.4 GM/DL (3.2-5.2); ALT/SGPT 50 U/L (12-78); BILIRUBIN,TOTAL 0.4 MG/DL (0.2-1.0); BLOOD UREA NITROGEN 17 MG/DL (7-18); CALCIUM LEVEL 9.1 MG/DL (8.8-10.2); CARBON DIOXIDE LEVEL 29 MEQ/L (21-32); CHLORIDE LEVEL 105 MEQ/L (98-107); CHOLESTEROL LEVEL 204 MG/DL (<200); CREATININE FOR GFR 0.91 MG/DL (0.55-1.30); FREE T4 1.14 NG/DL (0.76-1.46); GLOMERULAR FILTRATION RATE > 60.0 (>39); GLUCOSE, FASTING 251 MG/DL (70-100); HDL CHOLESTEROL 31 MG/DL (>40); LDL CHOLESTEROL 120 MG/DL (<100); NON-HDL-C 173 MG/DL; NT-PRO BNP 102 PG/ML (<125); POTASSIUM SERUM 3.3 MEQ/L (3.5-5.1); PTH INTACT 46.4 PG/ML (18.5-88.0); SODIUM LEVEL 141 MEQ/L (136-145); TOTAL 25(OH) VITAMIN D 72.7 NG/ML (30.0-100.0); TOTAL PROTEIN 7.4 GM/DL (6.4-8.2); TRIGLYCERIDES LEVEL 267 MG/DL (<150)
== END ==
LOC: M PLALAB 13:18
PROVIDERS: ATTEND Family Medicine
DX: E11.8 Type 2 diabetes mellitus with unspecified complications (principal); I11.0 Hypertensive heart disease with heart failure; I50.30 Unspecified diastolic (congestive) heart failure; Z79.899 Other long term (current) drug therapy

== ENCOUNTER → 2022-02-01 | Outpatient (CLI) | payer MEDICARE ==
[2022-02-01 18:16] LABS: HEMOGLOBIN A1c 9.9 %
[2022-02-01 18:47] LABS: ALBUMIN 3.4 GM/DL (3.2-5.2); BILIRUBIN,TOTAL 0.6 MG/DL (0.2-1.0); CALCIUM LEVEL 9.5 MG/DL (8.8-10.2); CREATININE FOR GFR 1.09 MG/DL (0.55-1.30); GLOMERULAR FILTRATION RATE 52.7 (>39); MAGNESIUM LEVEL 1.7 MG/DL (1.8-2.4); POTASSIUM SERUM 3.4 MEQ/L (3.5-5.1); TOTAL PROTEIN 7.6 GM/DL (6.4-8.2)
== END ==
LOC: M PLALAB 14:40
PROVIDERS: ATTEND Family Medicine
DX: E11.8 Type 2 diabetes mellitus with unspecified complications (principal); I50.30 Unspecified diastolic (congestive) heart failure

== ENCOUNTER → 2022-02-14 | Outpatient (CLI) | payer MEDICARE ==
[~2022-02-14] MED LIST changes: +ISOVUE-370 76% 100ML VIAL As Ordered ONE
== END ==
LOC: M RAD 11:56
PROVIDERS: ATTEND Family Medicine
DX: C34.92 Malignant neoplasm of unspecified part of left bronchus or lung (principal)
CPT/HCPCS: 71260; Q9967

== ENCOUNTER → 2022-02-22 | Outpatient (CLI) | payer MEDICARE ==
[~2022-02-22] MED LIST changes: -ISOVUE-370 76% 100ML VIAL As Ordered ONE
== END ==
LOC: M WHC 10:07
PROVIDERS: ATTEND Family Medicine
DX: Z12.31 Encounter for screening mammogram for malignant neoplasm of breast (principal)

== ENCOUNTER → 2022-04-09 | Outpatient (REF) | payer MEDICARE | LOC: M SFHCPLAZ 10:00 | PROVIDERS: ATTEND Family Medicine | DX: L97.518 Non-pressure chronic ulcer of other part of right foot with other specified severity (principal); C44.722 Squamous cell carcinoma of skin of right lower limb, including hip ==

== ENCOUNTER → 2022-07-23 | Outpatient (REF) | payer MEDICARE | LOC: M SFHCDERM 14:38 | PROVIDERS: ATTEND Dermatology | DX: Z48.02 Encounter for removal of sutures (principal) ==

== ENCOUNTER 2023-02-01 23:30 | Emergency (ER) | payer MEDICARE ==
[~2023-02-01] VITALS: Ht 170.2 cm; Wt 75.4 kg
[~2023-02-01 23:30] MED LIST changes: +ENAL1TAB52 PO; -ENAL20TA11 PO
[2023-02-02] MEDS ORDERED: NS 2,260 ML in IV 1 EA IV ONE (00:15)
[2023-02-02] MEDS ORDERED: ACETAMINOPHEN TAB 650MG DOSE (2X325MG) PO ONE (00:15)
[2023-02-02 00:33] LABS: INR 1.15; PROTHROMBIN TIME 14.9 SECONDS (12.5-14.5)
[2023-02-02 00:34] LABS: PARTIAL THROMBOPLASTIN TIME 27.1 SECONDS (24.8-34.2)
[2023-02-02 00:37] LABS: BASO % 0.3 % (0.0-1.0); EOS % 0.2 % (0.0-3.0); HEMATOCRIT 40.2 % (36.0-47.0); HEMOGLOBIN 13.9 g/dl (12.0-15.5); LYMPH # 1.1 10^3/uL (1.5-5.0); LYMPH % 7.7 % (24.0-44.0); MEAN CORPUSCULAR HEMOGLOBIN 31.4 pg (27.0-33.0); MEAN CORPUSCULAR HGB CONC 34.6 g/dl (32.0-36.5); MONO # 1.3 10^3/uL (0.0-0.8); MONO % 9.5 % (2.0-8.0); NEUTROPHILS # 11.2 10^3/uL (1.5-8.5); NEUTROPHILS % 80.9 % (36.0-66.0); PLATELET COUNT, AUTOMATED 214 10^3/uL (150-450); RED BLOOD COUNT 4.42 10^6/uL (4.00-5.40); WHITE BLOOD COUNT 13.8 10^3/uL (4.0-10.0)
[2023-02-02 00:42] LABS: LIPASE 21 U/L (12-53)
[2023-02-02 00:56] LABS: PROCALCITONIN 1.79 ng/ml
[2023-02-02 01:17] LABS: ALBUMIN 2.7 G/DL (3.2-5.2); ALKALINE PHOSPHATASE 87 U/L (46-116); ALT/SGPT 11 U/L (7.0-40); AMYLASE < 20 U/L (30-118); AST/SGOT 13 U/L (<34); BILIRUBIN,DIRECT 0.3 MG/DL (<0.4); BLOOD UREA NITROGEN 24 MG/DL (9-23); CALCIUM LEVEL 7.9 MG/DL (8.3-10.6); CARBON DIOXIDE LEVEL 29 MMOL/L (20-31); CHLORIDE LEVEL 101 MMOL/L (98-107); CREATININE FOR GFR 1.37 MG/DL (0.55-1.30); GLOMERULAR FILTRATION RATE 40.3 (>39); GLUCOSE, FASTING 334 MG/DL (74-106); POTASSIUM SERUM 2.9 MMOL/L (3.5-5.1); SODIUM LEVEL 139 MMOL/L (136-145); TOTAL PROTEIN 6.5 G/DL (5.7-8.2)
[2023-02-02] MEDS ORDERED: POTASSIUM CHLORIDE 10MEQ SR TABLET PO ONE ×2 (02:00)
[2023-02-02] MEDS ORDERED: cefTRIAXone SOD 1 GM in D5W MINI-BAG PLUS 50 ML IV ONE (02:35)
[2023-02-02] MEDS ORDERED: LIDOCAINE 2% 5ML JELLY UROJET TOP ONE (02:35)
[2023-02-02 04:00] VITALS: BP 136/66; TEMP 98.2; O2SAT 95
[2023-02-02] MEDS ORDERED: CEFP200T PO ×2 (04:01→04:35)
[2023-02-02] MEDS ORDERED: POTA-151 PO ×2 (04:03→04:35)
[2023-02-02] MEDS ORDERED: FLUCONAZOLE 100 MG TAB PO ONE (04:15)
== END 2023-02-02 04:38 | disposition home or self-care (01) ==
LOC: EDBD 23:30 → M ED 23:30
DX: N39.0 Urinary tract infection, site not specified (principal); E87.6 Hypokalemia; E86.0 Dehydration; R53.1 Weakness; E11.9 Type 2 diabetes mellitus without complications; I10 Essential (primary) hypertension; K21.9 Gastro-esophageal reflux disease without esophagitis; J44.9 Chronic obstructive pulmonary disease, unspecified; E78.5 Hyperlipidemia, unspecified; Z79.82 Long term (current) use of aspirin; Z79.899 Other long term (current) drug therapy; Z88.2 Allergy status to sulfonamides
CPT/HCPCS: 51701; 71045; 80048; 80076; 81001; 82150; 83605; 83690; 84145; 85025; 85610; 85730; 86140; 86850; 86900; 86901; 87040; 87077; 87088; 87186; 87486; 87581; 87633; 87798; 93005; 93041; 94760; 96374; 99285; J0696

== ENCOUNTER 2023-11-26 10:28 | Inpatient (IN) | payer MEDICARE ==
[~2023-11-26] VITALS: Ht 170.2 cm; Wt 73.2 kg
[2023-11-26 11:48] LABS: HEMATOCRIT 39.3 % (36.0-47.0); HEMOGLOBIN 13.5 g/dl (12.0-15.5); MEAN CORPUSCULAR HEMOGLOBIN 29.8 pg (27.0-33.0); MEAN CORPUSCULAR HGB CONC 34.4 g/dl (32.0-36.5); MEAN CORPUSCULAR VOLUME 86.8 fl (80.0-96.0); RED BLOOD COUNT 4.53 10^6/uL (4.00-5.40); WHITE BLOOD COUNT 8.7 10^3/uL (4.0-10.0)
[2023-11-26 11:51] LABS: PLATELET COUNT, AUTOMATED 86 10^3/uL (150-450)
[2023-11-26 12:26] LABS: CALCIUM LEVEL 9.6 MG/DL (8.3-10.6); CK-MB VALUE MASS 7.8 NG/ML (<3.6); CREATININE FOR GFR 3.64 MG/DL (0.55-1.30); POTASSIUM SERUM 5.5 MMOL/L (3.5-5.1)
[2023-11-26 13:27] LABS: INR 3.72; PROTHROMBIN TIME 35.4 SECONDS (12.5-14.5)
[2023-11-26 14:44] LABS: TOTAL PROTEIN,RANDOM URINE 82.5 MG/DL (0.0-14.0)
[2023-11-26] MEDS: NS 1,000 ML IV SCH (14:45)
[2023-11-26 14:59] LABS: CHLORIDE,RANDOM URINE 19.99999 MMOL/L; SODIUM,RANDOM URINE < 10 MMOL/L
[2023-11-26 15:33] LABS: C REACTIVE PROTEIN QUANTITATIV 22.4 MG/DL (<1.0)
[2023-11-26 15:34] LABS: ALBUMIN 1.8 G/DL (3.2-5.2); BILIRUBIN,DIRECT 6.8 MG/DL (<0.4); BILIRUBIN,TOTAL 8.8 MG/DL (0.3-1.2); TOTAL PROTEIN 5.6 G/DL (5.7-8.2)
[2023-11-26] MEDS: PIPERACILLIN/TAZOBACTAM SOD 3.375 GM in D5W MINI-BAG PLUS 50 ML IV ONE (16:14)
[2023-11-26 16:57] LABS: OSMOLALITY URINE 340 MOSM/KG (50-1400)
[2023-11-26] MEDS ORDERED: HOME MED LIST COMPLETE! XX SCH (20:50)
[2023-11-26] MEDS: ONDANSETRON 4MG 2ML VIAL IV PRN (20:55)
[2023-11-26] MEDS: PANTOPRAZOLE 40MG VIAL IV SCH (20:55)
[2023-11-26 21:45] VITALS: BP 141/74; TEMP 96.8; O2SAT 98
[2023-11-26 22:45] VITALS: BP 141/74; TEMP 96.8; O2SAT 98
[2023-11-26] MEDS ORDERED: ALBUTEROL 90 MCG/ACT 8GM HFA INHALER INH PRN (23:10)
[2023-11-26] MEDS: PIPERACILLIN/TAZOBACTAM SOD 4.5 GM in D5W MINI-BAG PLUS 50 ML IV SCH (23:31)
[2023-11-27 05:54] VITALS: BP 137/73; TEMP 97; O2SAT 95
[2023-11-27 06:48] LABS: HEMATOCRIT 34.6 % (36.0-47.0); MEAN CORPUSCULAR HEMOGLOBIN 29.9 pg (27.0-33.0); MEAN CORPUSCULAR HGB CONC 34.7 g/dl (32.0-36.5); MEAN CORPUSCULAR VOLUME 86.1 fl (80.0-96.0); RED BLOOD COUNT 4.02 10^6/uL (4.00-5.40); WHITE BLOOD COUNT 8.5 10^3/uL (4.0-10.0)
[2023-11-27 06:49] LABS: INR 3.92; PROTHROMBIN TIME 36.9 SECONDS (12.5-14.5)
[2023-11-27 07:01] LABS: PLATELET COUNT, AUTOMATED 85 10^3/uL (150-450)
[2023-11-27 07:06] LABS: ALBUMIN 1.5 G/DL (3.2-5.2); BILIRUBIN,TOTAL 8.1 MG/DL (0.3-1.2); CALCIUM LEVEL 9.2 MG/DL (8.3-10.6); CREATININE FOR GFR 3.94 MG/DL (0.55-1.30); GLOMERULAR FILTRATION RATE 11.9 (>39); POTASSIUM SERUM 4.1 MMOL/L (3.5-5.1); TOTAL PROTEIN 4.9 G/DL (5.7-8.2)
[2023-11-27 10:00] VITALS: BP_SYST 132; BP_DIAS 69; BP_DIAS 72; TEMP 97.2; O2SAT 94
[2023-11-27] MEDS ORDERED: ACETAMINOPHEN TAB 650MG DOSE (2X325MG) PO PRN (12:00)
[2023-11-27] MEDS ORDERED: FLEET ENEMA PR PRN (12:00)
[2023-11-29] MEDS: MORPHINE 10MG/0.5ML ORAL CONCENTRATE SOLUTION U/D SL PRN ×2 (02:56→13:24)
[2023-11-29] MEDS: LORazepam 1 MG TAB PO PRN (08:49)
[2023-11-29] MEDS: SCOPOLAMINE 1MG TRANSDERMAL PATCH TOP PRN (11:13)
== END 2023-11-30 03:00 | disposition expired | DRG 871 ==
LOC: M ED 10:28 → EDBD 10:28 → M ED INP 19:59 → M MS5PR 22:45
PROVIDERS: ADMIT Preventive Medicine Undersea and Hyperbaric Medicine; ATTEND Family Medicine
DX: A41.9 Sepsis, unspecified organism (principal); G93.41 Metabolic encephalopathy; K72.00 Acute and subacute hepatic failure without coma; C34.12 Malignant neoplasm of upper lobe, left bronchus or lung; N17.9 Acute kidney failure, unspecified; C20 Malignant neoplasm of rectum; N39.0 Urinary tract infection, site not specified; E87.20 Acidosis, unspecified; R18.8 Other ascites; I50.32 Chronic diastolic (congestive) heart failure; I13.0 Hypertensive heart and chronic kidney disease with heart failure and stage 1 through stage 4 chronic kidney disease, or unspecified chronic kidney disease; E72.20 Disorder of urea cycle metabolism, unspecified; F70 Mild intellectual disabilities; Z66 Do not resuscitate; N18.2 Chronic kidney disease, stage 2 (mild); K21.9 Gastro-esophageal reflux disease without esophagitis; E11.22 Type 2 diabetes mellitus with diabetic chronic kidney disease; J44.9 Chronic obstructive pulmonary disease, unspecified; K74.60 Unspecified cirrhosis of liver; E11.42 Type 2 diabetes mellitus with diabetic polyneuropathy; E87.5 Hyperkalemia; B96.20 Unspecified Escherichia coli [E. coli] as the cause of diseases classified elsewhere; Z90.49 Acquired absence of other specified parts of digestive tract; Z87.891 Personal history of nicotine dependence; Z79.51 Long term (current) use of inhaled steroids; Z88.2 Allergy status to sulfonamides

== ENCOUNTER → 2023-11-26 | Outpatient (REF) ==
[~2023-11-26] MED LIST changes: +CEFP200T PO; +MIRA3350 PO; +POTA-151 PO; +PROT1TAB2 PO; +SENN-186 PO; +SODI650T PO; +SUCR1ORA PO; +VENTAER INH
== END ==
PROVIDERS: ATTEND Physician Assistant
DX: N18.9 Chronic kidney disease, unspecified (principal); Z53.8 Procedure and treatment not carried out for other reasons

== ENCOUNTER → 2023-11-29 | Outpatient (REF) | PROVIDERS: ATTEND Physician Assistant | DX: C34.90 Malignant neoplasm of unspecified part of unspecified bronchus or lung (principal); Z53.8 Procedure and treatment not carried out for other reasons ==

== ENCOUNTER → 2023-11-29 | Outpatient (REF) | PROVIDERS: ATTEND Physician Assistant | DX: C34.90 Malignant neoplasm of unspecified part of unspecified bronchus or lung (principal); Z53.8 Procedure and treatment not carried out for other reasons ==

== ENCOUNTER → 2023-11-29 | Outpatient (REF) | PROVIDERS: ATTEND Physician Assistant | DX: C34.90 Malignant neoplasm of unspecified part of unspecified bronchus or lung (principal); Z53.8 Procedure and treatment not carried out for other reasons ==

== ENCOUNTER → 2023-11-29 | Outpatient (REF) | PROVIDERS: ATTEND Physician Assistant | DX: C34.90 Malignant neoplasm of unspecified part of unspecified bronchus or lung (principal); Z53.8 Procedure and treatment not carried out for other reasons ==